=== PATIENT | female | born 1960 | race Caucasian/White ===

== ENCOUNTER 2016-06-16 08:27 | Inpatient (IN) | payer MEDICARE, MEDICAID ==
--- NOTE | 2016-06-10 20:46 | HP ---
PREOPERATIVE HISTORY AND PHYSICAL: DATE OF ADMISSION: 06/16/16 PROVIDER: Dr. Marco A Mortensen. CHIEF COMPLAINT: Left leg pain. HISTORY OF PRESENT ILLNESS: Mita is a 56-year-old female who has been followed by Dr. Mortensen for left distal tibia fracture. She underwent open reduction internal fixation with IM rodding. She has gone on to developing nonunion of the fracture as well as failure of hardware to the distal locking screw. This has caused migration of the nail into the tibial plafond. She initially was reporting that she was pain free; however, she states that she has had more discomfort and swelling throughout the ankle and lower leg. Her current pain medication regimen is not helping the pain and she is finding it difficult to ambulate and sleep. She is now interested in surgical intervention. PAST MEDICAL HISTORY: GERD, hypertension, vertigo, depression, asthma, hypercholesterolemia, and vitamin D deficiency. PAST SURGICAL HISTORY: Left tibia ORIF; right frontal craniotomy for removal of a colloid with ventriculostomy, right MECHANIC CHIEF shunt placement, shunt removal; section with tubal ligation; hysterectomy; laparoscopic cholecystectomy ; left breast biopsy. She reports no complications with anesthesia with any of these procedures. CURRENT MEDICATIONS: 1. Gabapentin 300 mg 1 tab p.o. b.i.d. 2. Nexium 20 mg 1 tab p.o. b.i.d. 3. Propranolol 80 mg 1 tab p.o. t.i.d. 4. Meclizine 40 mg 2 tabs p.o. q.a.m., 1 tab p.o. q.h.s. 5. Fluoxetine HCl 40 mg 1 p.o. q. day. 6. ProAir HFA 2 puffs inhaled p.o. q.4 hours p.r.n. 7. Clobetasol propionate 0.05% topically q. day p.r.n. 8. Lamotrigine 100 mg 1 tab p.o. t.i.d. 9. Hydrocodone/acetaminophen 10/300 mg 1 tab p.o. q.a.m. and 1 tab p.o. t.i.d. p.r.n. 10. Simvastatin 5 mg 1 tab p.o. q. day. 11. Celecoxib 100 mg 1 tab p.o. b.i.d. 12. Xarelto 20 mg 1 p.o. q. day. The patient is currently withholding the Xarelto as of 06/09/16. 13. Propafenone HCl ER 325 mg 1 tab p.o. b.i.d. 14. Vitamin B12 injections 1000 mcg weekly. 15. Vitamin D 2000 units p.o. q. day. ALLERGIES: MORPHINE. SOCIAL HISTORY: The patient lives with her partner. She is on social security disability after her craniotomy. She quit smoking in April of 2014. She did smoke 1 pack per day for greater than 30 years. She is also a former alcoholic, quit 1995. She rarely exercises. REVIEW OF SYSTEMS: Constitutional: Negative for recent hospitalization, fevers , chills, night sweats, or weight loss. Head: Negative for headaches, lightheadedness, or balance problems. Cardiovascular: Negative for chest or arm pain with exertion, history of heart attack, heart murmur, or heart palpitations. Positive for high blood pressure. Negative for embolism or deep vein thrombosis. Respiratory: Positive for shortness of breath with exertion. Negative for chronic cough. Positive for asthma. Negative for COPD. Gastrointestinal: Negative for heartburn, nausea, vomiting, diarrhea. Positive for GERD. Genitourinary: Negative for nighttime urination, frequency of urination, urinary tract infections, or kidney problems. Musculoskeletal: Negative for chronic back pain. Positive for tibia fracture. Skin: Negative for rashes, lesions, lumps, or sores. Neurologic: Positive for history of seizure disorder. Negative for stroke. Positive for depression and anxiety. Endocrine: Negative for diabetes or thyroid problems. Hematology: Positive for easy bleeding due to the Xarelto. Negative for anemia. PHYSICAL EXAMINATION GENERAL: She is a well-developed, well-nourished female, in no acute distress at rest. She is alert and oriented x3 with appropriate mood and affect. VITAL SIGNS: The patient is 5 feet 5 inches, 246 pounds, blood pressure 140/88 , pulse 60. HEENT: Normocephalic, atraumatic. Hearing and vision are grossly intact. NECK: Her trachea is midline. RESPIRATORY: Lungs clear to auscultation bilaterally. No wheezes, rales, or rhonchi. CARDIOVASCULAR: Regular rate and rhythm. No murmurs, rubs, or gallops. Normal S1, S2. ABDOMEN: Soft, nondistended, nontender. Normal bowel sounds. EXTREMITIES: Exam of the left lower extremity, the incision over the anterior and medial aspect of the lower leg are well healed. There is moderate edema throughout the lower leg and ankle. There is no ecchymosis or gross deformities. She does have tenderness to palpation diffusely throughout the ankle joint. Her sensation to light touch is somewhat decreased secondary to peripheral neuropathy. She has a 2+ dorsalis pedis pulse. DIAGNOSTIC STUDIES: Imaging: CT scan of the left lower extremity was reviewed from [facility] and shows a nonunion of a spiral tibial plafond fracture with a fractured distal locking screw and migration of the tibial nail through the tibiotalar joint. IMPRESSION: Left tibia nonunion with failed hardware. PLAN: The patient is to undergo left tibial hardware removal and subsequent open reduction internal fixation of the left tibia with iliac bone graft on . The risks, benefits, and postoperative course were discussed with the patient and her partner at length and they would like to proceed. She was given a small prescription of hydrocodone to increase her dose temporarily until after surgery. She is understanding that this will be changed to oxycodone after surgery. All of her questions were answered to her full satisfaction. We will follow up with the patient in the postoperative phase. KENYA PARKER [id number]/[facility] #: [id number] MADHAV
[~2016-06-16 08:27] MED LIST: Buffered Lidocaine 1% SYR 3ML* 3 ML/SYR SYRINGE INTRADERM ONE; Famotidine IV* 10 MG/ML 2 ML (20 mg) IV ONE; PROCHLORPERAZINE INJ 5 MG/ML 2 ML VIAL IV PRN
[2016-06-16] MEDS ORDERED: Famotidine IV* 10 MG/ML 2 ML (20 mg) ONE (08:51)
[2016-06-16] MEDS ORDERED: ceFAZolin 2 GM PREMIX (*) 2 GM/50 ML BAG IVPB ONE (08:51)
[2016-06-16] MEDS ORDERED: Buffered Lidocaine 1% SYR 3ML* 3 ML/SYR SYRINGE ONE (08:51)
[2016-06-16] MEDS ORDERED: Midazolam* 1 MG/ML 5 ML VIAL (5 MG) ONE (10:31)
[2016-06-16] MEDS ORDERED: fentaNYL* 50 MCG/ML 2 ML VIAL (100 MCG VIAL) ONE ×2 (10:31→15:33)
[2016-06-16] MEDS ORDERED: KETAMINE HCL* 50 MG/ML 10 ML VIAL ONE (10:31)
[2016-06-16] MEDS ORDERED: Propofol* 10 MG/ML 20 ML BTL IV PUSH ONE (11:49)
[2016-06-16] MEDS ORDERED: HYDROmorphone INJ* 1 MG/ML CARPUJECT SYRINGE ONE ×3 (11:49→14:27)
[2016-06-16] MEDS ORDERED: Dexamethasone IV* 4 MG/ML 1 ML (4 MG) ONE (11:49)
[2016-06-16] MEDS ORDERED: Ondansetron INJ* 2 MG/ML VIAL ONE (11:49)
[2016-06-16] MEDS ORDERED: Bupivacaine 0.5% SDV PF* 30 ML VIAL ONE (13:04)
[2016-06-16] MEDS ORDERED: Labetalol IV* 5 MG/ML 20 ML VIAL ONE (13:41)
[2016-06-16] MEDS ORDERED: Lidocaine 2% MPF* 2 ML VIAL ONE (13:52)
[2016-06-16] MEDS ORDERED: hydrALAZINE IV* 20 MG/ML VIAL ONE (14:05)
[2016-06-16] MEDS ORDERED: Polyethylene Glycol 3350* 17 GM PACKET PO PRN (14:13)
[2016-06-16] MEDS ORDERED: traZODone TAB* 50 MG TAB PO PRN (14:13)
[2016-06-16] MEDS ORDERED: diPHENhydraMINE IV* 50 MG/ML 1 ml VIAL (BENADRYL) IV PRN (14:13)
[2016-06-16] MEDS ORDERED: Ondansetron INJ* 2 MG/ML VIAL IV PRN (14:13)
[2016-06-16] MEDS ORDERED: Magnesium Hydroxide LIQ* 30 ML UDC PO PRN (14:13)
[2016-06-16] MEDS ORDERED: oxyCODONE TAB* 5 MG TAB PO PRN (14:19)
[2016-06-16] MEDS ORDERED: HYDROmorphone INJ* 1 MG/ML CARPUJECT SYRINGE IV SLOW PU PRN (14:20)
[2016-06-16] MEDS: HYDROmorphone INJ* 1 MG/ML CARPUJECT SYRINGE IV PRN ×5 (14:29→15:10)
[2016-06-16] MEDS ORDERED: oxyCODONE/Acetamin 5/325 MG* TAB ONE (15:05)
[2016-06-16] MEDS: oxyCODONE/Acetamin 5/325 MG* TAB PO PRN ×2 (15:08→15:09)
[2016-06-16] MEDS: fentaNYL* 50 MCG/ML 2 ML VIAL (100 MCG VIAL) IV PRN ×4 (15:34→15:52)
[2016-06-16] MEDS ORDERED: Omeprazole CAP* 20 MG ONE (18:21)
[2016-06-16] MEDS: oxyCODONE TAB* 5 MG TAB PO PRN ×2 (18:23→22:54)
[2016-06-16] MEDS: ceFAZolin 1 GM in Dextrose (*) 1 GM/50 ML BAG IVPB SCH (19:44)
[2016-06-16] MEDS ORDERED: Omeprazole CAP* 20 MG PO SCH (21:00)
[2016-06-16] MEDS: CMCS Simvastatin TAB(NF) 10 MG TAB PO SCH (22:03)
[2016-06-16] MEDS: PROPAFENONE 325 MG PO SCH (22:04)
[2016-06-16] MEDS: Meclizine TAB* 12.5 MG PO SCH (22:05)
[2016-06-16] MEDS: lamoTRIgine TAB(*) 100 MG PO SCH (22:05)
[2016-06-16] MEDS: Gabapentin CAP(*) 300 MG PO SCH (22:06)
[2016-06-16] MEDS: Docusate CAP* 100 MG PO SCH (22:06)
[2016-06-16] MEDS: Rivaroxaban TAB(*) 20 MG TAB PO SCH (22:06)
[2016-06-16] MEDS: celeCOXIB CAP* 100 MG PO SCH (22:07)
[2016-06-16] MEDS: Propranolol TAB* 80 MG PO SCH (22:07)
[2016-06-16] MEDS: Zolpidem TAB* 10 MG PO PRN (22:07)
[2016-06-17] MEDS: oxyCODONE TAB* 5 MG TAB PO PRN ×4 (03:14→16:22)
[2016-06-17] MEDS: ceFAZolin 1 GM in Dextrose (*) 1 GM/50 ML BAG IVPB SCH ×2 (03:15→12:11)
[2016-06-17 07:10] LABS: Hematocrit 33 % (35-47); Hemoglobin 10.9 g/dl (12.0-16.0)
[2016-06-17 07:30] LABS: BUN/Creatinine Ratio 18.5 (8-20); Calcium 9.1 mg/dL (8.6-10.3); EGFR African American 93.7 (>60); EGFR Non-African American 72.9 (>60); Potassium 3.7 mmol/L (3.5-5.0)
[2016-06-17] MEDS: Omeprazole CAP* 20 MG PO SCH ×2 (07:32→16:23)
[2016-06-17] MEDS: celeCOXIB CAP* 100 MG PO SCH ×2 (08:45→20:11)
[2016-06-17] MEDS: Docusate CAP* 100 MG PO SCH ×2 (08:46→20:13)
[2016-06-17] MEDS: lamoTRIgine TAB(*) 100 MG PO SCH ×3 (08:46→20:13)
[2016-06-17] MEDS: Propranolol TAB* 80 MG PO SCH ×3 (08:47→20:13)
[2016-06-17] MEDS: Meclizine TAB* 12.5 MG PO SCH ×3 (08:47→20:13)
[2016-06-17] MEDS: PROPAFENONE 325 MG PO SCH ×2 (08:47→20:13)
[2016-06-17] MEDS ORDERED: FLUoxetine CAP* 20 MG PO SCH (09:00)
[2016-06-17] MEDS ORDERED: Cyanocobalamin TAB* 500 MCG PO SCH (09:00)
[2016-06-17] MEDS ORDERED: Cholecalciferol TAB* 1000 UNITS PO SCH (09:00)
[2016-06-17] MEDS ORDERED: Triamcinolone 0.025% OINT * 15 GM TUBE TOPICAL SCH (09:00)
--- NOTE | 2016-06-17 11:30 | OP ---
OPERATIVE REPORT: DATE OF OPERATION: 06/16/16 DATE OF : 58 ATTENDING SURGEON: Marco A Mortensen MD GARMENT STEAMER: Eun Irvin PA-C PRE-OP DIAGNOSIS: Left distal tibia malunion with failed hardware intramedullary nail. POST-OP DIAGNOSIS: Left distal tibia malunion with failed hardware intramedullary nail. OPERATIVE PROCEDURE: Removal of nail left tibia with open plating distal tibial nonunion with intra medullary bone grafting. DESCRIPTION OF PROCEDURE: The patient was taken to the operating room, where we opened up over the 2 distal screws at the distal tibia and 1 proximal screw. The heads of the screws were located and removed, but all 3 of the screws were broken. We split the patellar tendon proximally to allow the r emoval device to attach to the proximal nail. We drove this forcefully proximally, but we were unab le to extract it because of the retained broken screw threads distally. These were basically at the nonunion side at this point, so we opened up longitudinally to prepare for the plating. At the fra cture site, we were able to identify both broken screw shafts removing them directly, which then fac ilitated removing the nail proximally. Before we closed the proximal wound, we harvested cancellous graft from the proximal tibia with a large curette and irrigated thoroughly and closing the patella r tendon with 0 Vicryl sutures, subcutaneous tissue with 2-0 Vicryl, and then dallas for the proxim al wound. The tibial nonunion site was then freed up with the E[place]a elevator. We used a 5-mm power bur to fres hen the bone sides. We would need to shorten this to prevent varus, so an osteotomy is performed of the fibula through the same approach proximal to the plate. The proximal autograft and the tibia was mixed with some allograft chips and DBX bone putty placed a long the tibial nonunion and then plated this using a medial locking plate of the Synthes set, combi [place] of locking and nonlocking screws were used. X-rays intraoperatively showed a dissected posit ion at the plate. We then irrigated thoroughly closing with 0 Vicryl sutures and dallas and a comp ression dressing and plaster splint applied. [id number]/[facility] #: [id number]
[2016-06-17] MEDS: Gabapentin CAP(*) 300 MG PO SCH (20:12)
[2016-06-17] MEDS: CMCS Simvastatin TAB(NF) 10 MG TAB PO SCH (20:12)
[2016-06-17] MEDS: Rivaroxaban TAB(*) 20 MG TAB PO SCH (20:13)
[2016-06-17] MEDS: Albuterol HFA INHALER* 8 gm MDI INH PRN (20:13)
[2016-06-17] MEDS: Zolpidem TAB* 10 MG PO PRN (22:35)
[2016-06-18] MEDS: Omeprazole CAP* 20 MG PO SCH (05:50)
[2016-06-18] MEDS: Albuterol HFA INHALER* 8 gm MDI INH PRN (05:50)
[2016-06-18] MEDS: oxyCODONE TAB* 5 MG TAB PO PRN (06:09)
[2016-06-18 08:11] VITALS: BP 116/72
--- NOTE | 2016-06-18 08:12 | PN ---
Progress Note - Progress Note SOAP: Subjective: POD #2 Left tibia fx ORIF revision with hardware removal. Pt states that she is doing well. Pain controlled with medication. Denies CP/SOB. States that she is doing ok with NWB. Objective: Vital Signs: Temp Pulse Resp BP Pulse Ox 98.6 F 78 20 119/66 93 06/18/16 04:11 06/18/16 04:11 06/18/16 06:09 06/18/16 04:11 06/18/16 04:11 Gen: A & Ox3, NAD at rest sitting in bed LLE: Splint C/D/I. +f/e at MTPs. N/V intact Assessment: POD #2 Left tibia fx ORIF revision with hardware removal Plan: D/C home today Aspirin 325mg po q day for DVT ppx Pt states she has home health coming in for assistance and PT F/u with Dr. Mortensen 10-14 days post op
--- NOTE | 2016-07-15 01:08 | DS ---
DISCHARGE SUMMARY: DATE OF ADMISSION: 06/16/16 DATE OF DISCHARGE: 06/18/16 HISTORY: Mita was admitted on 06/16/16 with a diagnosis of nonunion and distal migration of left tibial nail. She is densely neuropathic. She underwent removal of the tibial nail and tibial plating with intramedullary bone grafting. The procedure was performed on 06/16/16 and tolerated well. Postoperatively, the patient was admitted for observation because of inability to ambulate, nonweightbearing and necessity for IV pain medication. The day after surgery, she was noted to be afebrile and slowly mobilizing with therapy and 2 days postoperatively, she was up successfully with physical therapy and tolerating oral pain medication. She was discharged on her routine medications with the addition of aspirin 325 a day. Her splint was intact and dry, and the patient was discharged with scheduled followup with Dr. Mortensen in 10 days' time. [id number]/[facility] #: [id number] MTDD
== END 2016-06-18 09:50 | disposition home or self-care (01) | DRG 494 ==
LOC: AA 08:27 → INTOOBSV 08:27 → AA 15:45 → SSU 17:16 → OBSVTOIN 06-17 15:45
PROVIDERS: ADMIT Orthopaedic Surgery; ATTEND Orthopaedic Surgery
PROC: 0QPH04Z Removal of Internal Fixation Device from Left Tibia, Open Approach (ICD-10-PCS; 2016-06-16)
PROC: 0QHH04Z Insertion of Internal Fixation Device into Left Tibia, Open Approach (ICD-10-PCS; principal; 2016-06-16 10:45)
DX: S82.872K Displaced pilon fracture of left tibia, subsequent encounter for closed fracture with nonunion (principal); I10 Essential (primary) hypertension; W19.XXXD Unspecified fall, subsequent encounter; K21.9 Gastro-esophageal reflux disease without esophagitis; F32.9 Major depressive disorder, single episode, unspecified; J45.909 Unspecified asthma, uncomplicated; E78.00 Pure hypercholesterolemia, unspecified; E55.9 Vitamin D deficiency, unspecified; F10.21 Alcohol dependence, in remission; Z79.01 Long term (current) use of anticoagulants; Z79.899 Other long term (current) drug therapy; Z88.6 Allergy status to analgesic agent; Z87.891 Personal history of nicotine dependence
CPT/HCPCS: 36415; 80048; 85014; 85018; 87070; 87205; 88300; A9270-GY; C1713; C1776; C9359; G0378; G8987-GO-CI; G8988-GO-CI; G8989-GO-CI; J0360; J0690; J1100; J1170; J2250; J2405; J2704; J3010

== ENCOUNTER 2016-11-27 11:49 | Inpatient (IN) | payer MEDICARE, MEDICAID ==
[2016-11-27 13:26] LABS: Hematocrit 40 % (35-47); Hemoglobin 13.2 g/dl (12.0-16.0); Mean Corpuscular HGB Conc 33 g/dl (31-36); Mean Corpuscular Hemoglobin 32 pg (27-31); Mean Corpuscular Volume 96 fL (80-97); Mean Platelet Volume 8 um3 (7.4-10.4); Red Blood Count 4.17 10^6/ul (4.0-5.4); Red Cell Distribution Width 14 % (10.5-15); White Blood Count 9.9 10^3/ul (3.5-10.8)
[2016-11-27 13:38] LABS: ALT 28 U/L (7-52); AST 48 U/L (13-39); Acetaminophen < 15 mcg/mL; Albumin 4.5 g/dL (3.2-5.2); Alcohol < 10 mg/dL (<10); Alkaline Phosphatase 109 U/L (34-104); Anion Gap 12 mmol/L (2-11); BUN/Creatinine Ratio 20.2 (8-20); Blood Urea Nitrogen 22 mg/dL (6-24); CO2 Carbon Dioxide 22 mmol/L (22-32); Calcium 9.6 mg/dL (8.6-10.3); Chloride 104 mmol/L (101-111); EGFR African American 66.5 (>60); EGFR Non-African American 51.7 (>60); Globulin 3.5 g/dL (2-4); Glucose 169 mg/dL (70-100); Potassium 3.8 mmol/L (3.5-5.0); Salicylate < 2.50 mg/dL (<30); Sodium 138 mmol/L (133-145)
[2016-11-27] MEDS ORDERED: NS 0.9% 1000 ML* 1,000 ML IV ONE (13:45)
[2016-11-27] MEDS ORDERED: Albuterol/Ipratropium NEB.SOL* Albuterol 2.5 MG/Ipratropium 0.5 MG 3 ML INH ONE (13:52)
--- NOTE | 2016-11-27 14:27 | RAD ---
HISTORY: Fall COMPARISONS: September 30, 2015 TECHNIQUE: Multiple contiguous axial CT scans were obtained of the head without intravenous contrast. FINDINGS: HEMORRHAGE/INFARCT: There is no hemorrhage or acute infarct. MASSES/SHIFT: There is no mass or shift. EXTRA-AXIAL SPACES: There are no extra-axial fluid collections. SULCI AND VENTRICLES: The sulci and ventricles are normal in size and position for the patient's stated age. CEREBRUM: There is stable right frontal encephalomalacia BRAINSTEM: There are no focal parenchymal abnormalities. CEREBELLUM: There are no focal parenchymal abnormalities. VESSELS: The vessels are grossly normal. PARANASAL SINUSES: The paranasal sinuses are clear. ORBITS: The orbits are unremarkable. BONES AND SOFT TISSUE: There is postsurgical change to the right frontal skull OTHER: None IMPRESSION: NO ACUTE INTRACRANIAL PATHOLOGY. Stable right frontal encephalomalacia
--- NOTE | 2016-11-27 14:31 | RAD ---
INDICATION: Fall. Abrasions. COMPARISON: None TECHNIQUE: Noncontrast axial source images was performed from the skull base to the thoracic inlet. Coronal and and sagittal reformatted images were generated. FINDINGS: Vertebrae: There is no fracture or acute focal bony lesion. There is mild multilevel degenerative spurring most prominent about C5-C7. There is endplate sclerosis, anterior vertebral spurring, and mild uncinate process spurring with posterior spondylitic ridge formation. Alignment: The craniocervical junction appears normal. The cervical vertebrae are normally aligned. Central Canal: There are no significant CT abnormalities of the central canal or foramina. MR imaging is a more sensitive method to evaluate the canal and foramina. Intervertebral disc spaces: Minor narrowing C5-C6 and C6-C7. The remaining disc spaces are maintained. Brain: The visualized brain appears unremarkable. Soft tissues: The visualized soft tissue elements of the neck are unremarkable. The prevertebral soft tissues appear normal. The lung apices are clear. IMPRESSION: MODERATE MID TO LOWER CERVICAL OSTEOARTHRITIS. NO ACUTE FINDINGS.
[2016-11-27 14:33] LABS: Urine Bacteria Absent (Absent); Urine Bilirubin Negative (Negative); Urine Glucose Negative (Negative); Urine Nitrite Negative (Negative)
[2016-11-27] MEDS ORDERED: Ondansetron INJ* 2 MG/ML VIAL IV ONE (15:15)
[2016-11-27] MEDS ORDERED: cefTRIAXone(*) 1 GM in NS 0.9% 50 ML* 50 ML IVPB ONE (15:15)
[2016-11-27] MEDS ORDERED: Clindamycin 600 MG IVPREMIX(* 600 MG/50 ML SDV IV ONE (15:18)
--- NOTE | 2016-11-27 15:41 | RAD ---
Indication: Right elbow injury. 4 views of the right elbow demonstrates no fracture. No joint effusion is noted. IMPRESSION: No fracture of the right elbow is noted.
--- NOTE | 2016-11-27 15:41 | RAD ---
INDICATION: Right shoulder injury. TECHNIQUE: 4 views of the right shoulder were obtained portably. FINDINGS: The bones are in normal alignment. No fracture is seen. There is mild joint space narrowing and erosive change present in the acromioclavicular joint. IMPRESSION: 1. NO EVIDENCE FOR FRACTURE. 2. FINDINGS MOST CONSISTENT WITH INFLAMMATORY ARTHROPATHY IN THE ACROMIOCLAVICULAR JOINT.
--- NOTE | 2016-11-27 15:42 | RAD ---
HISTORY: Overdose COMPARISONS: August 09, 2015 VIEWS:1: Single frontal portable view of the chest at 2:55 PM FINDINGS: LINES AND TUBES: None. CARDIOMEDIASTINAL SILHOUETTE: The cardiomediastinal silhouette is normal for portable technique. PLEURA: The costophrenic angles are sharp. No pleural abnormalities are noted. LUNG PARENCHYMA: The lung volumes are low. The lungs are clear accounting for the phase of respiration. There is minimal linear opacification of the right lung base. ABDOMEN: The upper abdomen is clear. There is no subphrenic gas. BONES AND SOFT TISSUES: No bone or soft tissue abnormalities are noted. IMPRESSION: LOW LUNG VOLUMES WITH MINIMAL LINEAR ATELECTASIS OF THE RIGHT LUNG BASE.
--- NOTE | 2016-11-27 15:42 | RAD ---
Indication: Right forearm pain. 2 views of the right forearm demonstrates no fracture. No other bone or joint abnormality is identified. IMPRESSION: No fracture of the right forearm is noted.
[2016-11-27] MEDS ORDERED: Ondansetron INJ* 2 MG/ML VIAL IV PRN (15:51)
[2016-11-27] MEDS ORDERED: NS 0.9% 1000 ML* 1,000 ML IV SCH (16:00)
--- NOTE | 2016-11-27 17:57 | HP ---
History of Present Illness - History of Present Illness Reason for Visit: Attempted overdose History of Present Illness: This is a 56 yo obese white female with PMH of afib and depression that presents to ER after attempted overdose. She states she took 4 hydrocodone and 10 Xarelto in an attempt earlier this morning and was found on the floor unconscious and transported to the hospital by ambulance and given a dose of Narcan. Precipitating factors to suicide attempt include fracture of distal tibia last December that she reports "never healed fully", and recent breakup with her boyfriend of 27 years after he was "cheating with another woman". She denies previous hx of suicide attempt or psychiatric hospitalizations. She is not presently suicidal but is tearful and feeling depressed. She has no memory of falling onto the floor and being transferred to the hospital. She denies dizziness, SOB, or chest pains but feels drowsy and tired. She denies any pain from fall out of bed. 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 , ORIF for left distal tibial fracture in May of this year, Cholecystectomy , Hysterectomy - Past Family History Family History: CAD, DM, Other - Pancreatic Cancer - Past Social History Smoke: # pack years - 30, Quit Alcohol: None - Previous alcoholic, quit in 1995 Drugs: None Review of Systems - Review of Systems Other: General: Denies chills, sweats Head: Positive for ECKERT Denies dizziness Lungs: Denies cough, SOB, orthopnea Heart: Denies chest pain, palpitations Abdomen: Denies abdominal pain, n/v/d/c/ : Denies: dysuria, incontinence Extremities: Denies edema, pain Psychiatric: Positive for depression Denies: Suicidal ideation, homicidal ideation, hallucinations. - Medications/Allergies Allergies/Adverse Reactions: Allergies Allergy/AdvReac Type Severity Reaction Status Date / Time Adhesive Tape [Plastic Tape] Allergy Intermediate Rash And Verified 06/16/16 08: 58 Itching Morphine Allergy HALLUCINATION, Verified 06/16/16 08:58 VIOLENT Medications: Current Medications Home medications: Atorvastatin Calcium (Lipitor*) 10 mg PO 1700 SUZIE Fluoxetine HCl (Prozac Cap*) 40 mg PO DAILY SUZIE Gabapentin (Neurontin Cap(*)) 300 mg PO TID SUZIE Lamotrigine (Lamictal Tab(*)) 100 mg PO TID SUZIE Omeprazole (Prilosec Cap*) 20 mg PO 0600 SUZIE Propranolol HCl (Inderal Tab*) 80 mg PO TID SUZIE Nexium 20 mg 1 tab daily Meclizine 40 mg two tabs QAM, 1 tab QHS Proair 2 puffs as needed Colace 100 mg PO daily Propofenone HCL 325 mg PO daily Hydrocodone/Acetaminophen 10/300 Xarelto 20 mg PO daily Celecoxib 100 mg PO BID Exam - Exam Vital Signs: Vital Signs (72 hours) Vital Signs Temp Pulse Resp BP Pulse Ox 98.1 F 95 19 158/98 96 11/27/16 13:17 11/27/16 16:00 11/27/16 16:00 11/27/16 16:00 11/27/16 16:00 General: This is a 56 yo obese white woman that is lethargic laying on hospital bed with eyes closed but easily aroused. Skin: Notable ecchymosis on right shoulder, right elbow and forearm, and right hip. No open cuts or lesions. HEENT: Atraumatic, normocelphalic, PERRLA bilaterally. Lungs: Chest is symmetric with visible respiratory effort with coarseness and rhonchi throughout. Heart: Irregularly irregular, no JVD, with no murmurs, rubs of gallops. Abdomen: Hypoactive bowel sounds, abdomen is obese but soft and nontender. Extremities: left ankle with increased warmth around area of scar from previous surgery with mild edema of foot and ankle. PP 2+ bilaterally. Neuro: Lethargic without knowing place, date, day or time. Labs Results: WBC 9.9 10^3/ul (3.5-10.8) 11/27/16 13:06 RBC 4.17 10^6/ul (4.0-5.4) 11/27/16 13:06 Hgb 13.2 g/dl (12.0-16.0) 11/27/16 13:06 Hct 40 % (35-47) 11/27/16 13:06 MCV 96 fL (80-97) 11/27/16 13:06 MCH 32 pg (27-31) H 11/27/16 13:06 MCHC 33 g/dl (31-36) 11/27/16 13:06 RDW 14 % (10.5-15) 11/27/16 13:06 Plt Count 300 10^3/ul (150-450) 11/27/16 13:06 MPV 8 um3 (7.4-10.4) 11/27/16 13:06 Neut % (Auto) 87.7 % (38-83) H 11/27/16 13:06 Lymph % (Auto) 6.8 % (25-47) L 11/27/16 13:06 Jones % (Auto) 5.0 % (1-9) 11/27/16 13:06 Eos % (Auto) 0 % (0-6) 11/27/16 13:06 Baso % (Auto) 0.5 % (0-2) 11/27/16 13:06 Absolute Neuts (auto) 8.7 10^3/ul (1.5-7.7) H 11/27/16 13:06 Absolute Lymphs (auto) 0.7 10^3/ul (1.0-4.8) L 11/27/16 13:06 Absolute Monos (auto) 0.5 10^3/ul (0-0.8) 11/27/16 13:06 Absolute Eos (auto) 0 10^3/ul (0-0.6) 11/27/16 13:06 Absolute Basos (auto) 0 10^3/ul (0-0.2) 11/27/16 13:06 Absolute Nucleated RBC 0 10^3/ul 11/27/16 13:06 Nucleated RBC % 0 11/27/16 13:06 INR (Anticoag Therapy) 2.82 (0.89-1.11) H 11/27/16 13:06 APTT 41.2 seconds (26.0-36.3) H 11/27/16 13:06 Sodium 138 mmol/L (133-145) 11/27/16 13:06 Potassium 3.8 mmol/L (3.5-5.0) 11/27/16 13:06 Chloride 104 mmol/L (101-111) 11/27/16 13:06 Carbon Dioxide 22 mmol/L (22-32) 11/27/16 13:06 Anion Gap 12 mmol/L (2-11) H 11/27/16 13:06 BUN 22 mg/dL (6-24) 11/27/16 13:06 Creatinine 1.09 mg/dL (0.51-0.95) H 11/27/16 13:06 Est GFR ( Amer) 66.5 (>60) 11/27/16 13:06 Est GFR (Non-Af Amer) 51.7 (>60) 11/27/16 13:06 BUN/Creatinine Ratio 20.2 (8-20) H 11/27/16 13:06 Glucose 169 mg/dL (70-100) H 11/27/16 13:06 Calcium 9.6 mg/dL (8.6-10.3) 11/27/16 13:06 Total Bilirubin 0.80 mg/dL (0.2-1.0) 11/27/16 13:06 AST 48 U/L (13-39) H 11/27/16 13:06 ALT 28 U/L (7-52) 11/27/16 13:06 Alkaline Phosphatase 109 U/L (34-104) H 11/27/16 13:06 Total Creatine Kinase 1370 U/L (10-223) H 11/27/16 13:06 Troponin I 0.10 ng/mL (<0.04) H* 11/27/16 13:06 Total Protein 8.0 g/dL (6.4-8.9) 11/27/16 13:06 Albumin 4.5 g/dL (3.2-5.2) 11/27/16 13:06 Globulin 3.5 g/dL (2-4) 11/27/16 13:06 Albumin/Globulin Ratio 1.3 (1-3) 11/27/16 13:06 TSH 2.10 mcIU/mL (0.34-5.60) 11/27/16 13:06 Urine Color Paty 11/27/16 14:11 Urine Appearance Cloudy 11/27/16 14:11 Urine pH 5.0 (5-9) 11/27/16 14:11 Ur Specific [place] 1.023 (1.010-1.030) 11/27/16 14:11 Urine Protein 1+(30 mg/dl) (Negative) H 11/27/16 14:11 Urine Ketones Negative (Negative) 11/27/16 14:11 Urine Blood 2+ (Negative) H 11/27/16 14:11 Urine Nitrate Negative (Negative) 11/27/16 14:11 Urine Bilirubin Negative (Negative) 11/27/16 14:11 Urine Urobilinogen Positive (Negative) H 11/27/16 14:11 Ur Leukocyte Esterase 3+ (Negative) H 11/27/16 14:11 Urine WBC (Auto) 3+(>20/hpf) (Absent) H 11/27/16 14:11 Urine RBC (Auto) 3+(>10/hpf) (Absent) H 11/27/16 14:11 Ur Squamous Epith Cells Present (Absent) H 11/27/16 14:11 Urine Bacteria Absent (Absent) 11/27/16 14:11 Hyaline Casts Present (Absent) H 11/27/16 14:11 Urine Glucose Negative (Negative) 11/27/16 14:11 Salicylates < 2.50 mg/dL (<30) 11/27/16 13:06 Acetaminophen < 15 mcg/mL 11/27/16 13:06 Serum Alcohol < 10 mg/dL (<10) 11/27/16 13:06 EKG: T wave inversions in V2-V4 with prolonged QT and premature atrial beats with left axis deviation and good R wave progression. CT brain: No acute intracranial pathology. Cervical spine CT: No acute findings, evidence of OA. Elbow X-ray: Negative for fracture. Shoulder X-ray: Negative for fracture but some inflammatory arthropathy in AC joint. Forearm X-ray: negative for fracture. CXR: Minimal linear atelectasis of right lung base. Assessment/Plan - Assessment/Plan Plan: Assessment/Plan: This is a 56 yo obese white female the presents with attempted suicide after overdose on hydrocodone and Xarelto with depression, NSTEMI type II, QT prolongation, and atrial fibrillation. 1) Medication overdose secondary to depression: Consultation with psychiatry. Recheck INR, PTT from ingestion of Xarelto. Patient is not actively suicidal but will be placed on 1:1. Stop Prozac due to risk of QT prolongation. Check CK, as it is unknown how long patient was on the ground before being found. 2) NSTEMI, type II: EKG results show TWI in V2-V4 with positive Trop of 0.10. Type 2 likely due to supply/demand mismatch with ingestion of attempted overdose medications so hold NSTEMI management as likely not due to ischemia and patients increased risk of bleeding. Trend Troponins. Place on telemetry and repeat EKG tomorrow. 3) QT Prolongation: Stop Zofran, Propafenone, and Prozac as side effect is QT prolongation. 4) Atrial fibrillation: Patient scores a 2 on chadsvasc scoring which puts her at 3% risk for stroke. Need to consider outpatient options for reversible anticoagulation with possible switch to Coumadin. Hold Xarelto and propafenone. 5) HTN: Cont Propranolol. 6) GERD: Cont Nexium 7) Hyperlipidemia: Cont Simvastatin 8) Asthma: Cont Proair 9) Vertigo: Cont Meclizine 10) DVT Prophylaxis: Hold Heparin 11) Code status: DNR Status/disposition: Admitted for observation.
[2016-11-27 18:16] LABS: Creatine Kinase 1370 U/L (10-223)
[2016-11-27] MEDS ORDERED: PROPAFENONE 325 MG PO SCH (21:00)
[2016-11-27] MEDS: Gabapentin CAP(*) 300 MG PO SCH (22:19)
[2016-11-27] MEDS: lamoTRIgine TAB(*) 100 MG PO SCH (22:21)
[2016-11-27] MEDS: Propranolol TAB* 80 MG PO SCH (22:22)
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
[2016-11-28] MEDS ORDERED: Acetaminophen TAB* 325 MG PO PRN (00:55)
[2016-11-28] MEDS ORDERED: Acetaminophen TAB* 325 MG ONE (01:17)
[2016-11-28] MEDS ORDERED: Nicotine Inhaler* 10 MG AMP INH PRN (05:08)
[2016-11-28] MEDS ORDERED: Mouth Piece, Nicotine* 1 EACH CARTRIDGE INH ONE (05:20)
[2016-11-28] MEDS ORDERED: Mouth Piece, Nicotine* 1 EACH CARTRIDGE ONE (05:22)
[2016-11-28] MEDS: Omeprazole CAP* 20 MG PO SCH (05:24)
[2016-11-28 06:08] LABS: Hematocrit 36 % (35-47); Hemoglobin 11.5 g/dl (12.0-16.0); Mean Corpuscular HGB Conc 32 g/dl (31-36); Mean Corpuscular Hemoglobin 32 pg (27-31); Mean Corpuscular Volume 97 fL (80-97); Mean Platelet Volume 8 um3 (7.4-10.4); Red Blood Count 3.66 10^6/ul (4.0-5.4); Red Cell Distribution Width 14 % (10.5-15); White Blood Count 8.9 10^3/ul (3.5-10.8)
[2016-11-28 06:20] LABS: BUN/Creatinine Ratio 25.6 (8-20); EGFR African American 92.4 (>60); EGFR Non-African American 71.9 (>60); Potassium 4.1 mmol/L (3.5-5.0)
[2016-11-28] MEDS: Propranolol TAB* 80 MG PO SCH ×3 (07:46→20:35)
[2016-11-28] MEDS: Gabapentin CAP(*) 300 MG PO SCH ×3 (07:46→20:34)
[2016-11-28] MEDS: lamoTRIgine TAB(*) 100 MG PO SCH ×3 (07:46→20:35)
[2016-11-28] MEDS ORDERED: FLUoxetine CAP* 20 MG PO SCH (09:00)
--- NOTE | 2016-11-28 16:44 | PN ---
Subjective Date of Service: 11/28/16 Interval History: Events review: Fall today when trying to get out of bed. She does not usually walk but tried to stand using a walker while aide was retrieving a wheelchair. Seen after fall and pt denies ECKERT, N/V, LH vision changes Does not endorse regret after suicide attempt Boyfriend in room and voices support for patient. Objective Active Medications: Acetaminophen (Tylenol Tab*) 650 mg PO Q6H PRN PRN Reason: FEVER/PAIN Last Admin: 11/28/16 01:18 Dose: 650 mg Atorvastatin Calcium (Lipitor*) 10 mg PO 1700 [facility] Gabapentin (Neurontin Cap(*)) 300 mg PO TID [facility] Last Admin: 11/28/16 14:56 Dose: 300 mg Lamotrigine (Lamictal Tab(*)) 100 mg PO TID [facility] Last Admin: 11/28/16 14:56 Dose: 100 mg Nicotine (Nicotine Inhaler*) 10 mg INH Q2H PRN PRN Reason: CRAVING Last Admin: 11/28/16 05:26 Dose: 10 mg Omeprazole (Prilosec Cap*) 20 mg PO 0600 [facility] Last Admin: 11/28/16 05:24 Dose: 20 mg Propranolol HCl (Inderal Tab*) 80 mg PO TID [facility] Last Admin: 11/28/16 14:56 Dose: 80 mg Oxygen Devices in Use Now: None - 95% RA Appearance: obese, NAD Eyes: No Scleral Icterus, PERRLA Ears/Nose/Mouth/Throat: Clear Oropharnyx, Mucous Membranes Moist Neck: NL Appearance and Movements; NL JVP, Trachea Midline Respiratory: Symmetrical Chest Expansion and Respiratory Effort, Clear to Auscultation Cardiovascular: RRR Abdominal: NL Sounds; No Tenderness; No Distention, No Hepatosplenomegaly Lymphatic: No Cervical Adenopathy Extremities: - - 1+ le edema Neurological: Alert and Oriented x 3 Result Diagrams: 11/28/16 05:29 11/28/16 05:29 Additional Lab and Data: Lab Results 11/27/16 11/27/16 Range/Units 13:06 13:06 WBC 9.9 (3.5-10.8) 10^3/ul RBC 4.17 (4.0-5.4) 10^6/ul Hgb 13.2 (12.0-16.0) g/dl Hct 40 (35-47) % MCV 96 (80-97) fL MCH 32 H (27-31) pg MCHC 33 (31-36) g/dl RDW 14 (10.5-15) % Plt Count 300 (150-450) 10^3/ul MPV 8 (7.4-10.4) um3 Neut % (Auto) 87.7 H (38-83) % Lymph % (Auto) 6.8 L (25-47) % [place] % (Auto) 5.0 (1-9) % Eos % (Auto) 0 (0-6) % Baso % (Auto) 0.5 (0-2) % Absolute Neuts (auto) 8.7 H (1.5-7.7) 10^3/ul Absolute Lymphs (auto) 0.7 L (1.0-4.8) 10^3/ul Absolute Monos (auto) 0.5 (0-0.8) 10^3/ul Absolute Eos (auto) 0 (0-0.6) 10^3/ul Absolute Basos (auto) 0 (0-0.2) 10^3/ul Absolute Nucleated RBC 0 10^3/ul Nucleated RBC % 0 Sodium 138 (133-145) mmol/L Potassium 3.8 (3.5-5.0) mmol/L Chloride 104 (101-111) mmol/L Carbon Dioxide 22 (22-32) mmol/L Anion Gap 12 H (2-11) mmol/L BUN 22 (6-24) mg/dL Creatinine 1.09 H (0.51-0.95) mg/dL Est GFR ( Amer) 66.5 (>60) Est GFR (Non-Af Amer) 51.7 (>60) BUN/Creatinine Ratio 20.2 H (8-20) Glucose 169 H (70-100) mg/dL Calcium 9.6 (8.6-10.3) mg/dL Total Bilirubin 0.80 (0.2-1.0) mg/dL AST 48 H (13-39) U/L ALT 28 (7-52) U/L Alkaline Phosphatase 109 H (34-104) U/L Total Protein 8.0 (6.4-8.9) g/dL Albumin 4.5 (3.2-5.2) g/dL Globulin 3.5 (2-4) g/dL Albumin/Globulin Ratio 1.3 (1-3) TSH 2.10 (0.34-5.60) mcIU/mL Salicylates < 2.50 (<30) mg/dL Acetaminophen < 15 mcg/mL Serum Alcohol < 10 (<10) mg/dL Assess/Plan/Problems-Billing Assessment: 56 yo F admitted after intentional overdose - Patient Problems (1) Overdose Comment: maintain 1:1 monitoring monitor qtc holding narcotics, xarelto and other wtc prolonging drugs (2) Elevated troponin Comment: demand mediated (3) QT prolongation Comment: has been prolonged on past ekgs holding propafenone, prozac check in AM (4) Hypertension Comment: propanolol (5) History of seizures Current Visit: No Status: Chronic Priority: High Code(s): Z87.898 - PERSONAL HISTORY OF OTHER SPECIFIED CONDITIONS SNOMED Code(s): 967202040 Comment: Continue Lamictal (6) Paroxysmal atrial fibrillation Current Visit: No Status: Chronic Code(s): I48.0 - PAROXYSMAL ATRIAL FIBRILLATION SNOMED Code(s): 069148228 Comment: Rate controlled. SR in the 70s and 80s. Continue propafenone, propranalol, and Xarelto. (7) DVT prophylaxis Comment: od on xarelto. hold AC
[2016-11-28] MEDS ORDERED: Atorvastatin* 10 MG TAB PO SCH (17:00)
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
[2016-11-29 05:43] LABS: Hematocrit 34 % (35-47); Hemoglobin 11.3 g/dl (12.0-16.0); Mean Corpuscular HGB Conc 33 g/dl (31-36); Mean Corpuscular Hemoglobin 32 pg (27-31); Mean Corpuscular Volume 96 fL (80-97); Mean Platelet Volume 8 um3 (7.4-10.4); Red Blood Count 3.56 10^6/ul (4.0-5.4); Red Cell Distribution Width 14 % (10.5-15); White Blood Count 7.4 10^3/ul (3.5-10.8)
[2016-11-29] MEDS: Omeprazole CAP* 20 MG PO SCH (05:51)
[2016-11-29] MEDS: Propranolol TAB* 80 MG PO SCH (07:49)
[2016-11-29] MEDS: lamoTRIgine TAB(*) 100 MG PO SCH (07:49)
[2016-11-29] MEDS: Gabapentin CAP(*) 300 MG PO SCH (07:49)
[2016-11-29 09:04] VITALS: BP 129/69
--- NOTE | 2016-11-30 13:01 | DS ---
CC: Dr. Redmond; Dr. Camacho * DISCHARGE SUMMARY: DATE OF ADMISSION: 11/27/16 DATE OF DISCHARGE: 11/29/16 PRIMARY DIAGNOSIS: Medication overdose in suicide attempt. SECONDARY DIAGNOSES: Include: 1. Prolonged QT interval. 2. Atrial fibrillation. 3. Depression. 4. Elevated troponin. 5. Hypertension. 6. History of seizures. PERTINENT LABORATORY DATA: INR on presentation 2.8, on discharge 1.2. Troponin -I peaked at 0.12, returned to 0.01 on day of discharge. MEDICATIONS ON DISCHARGE: 1. Xopenex 45 mcg daily. 2. Lamictal 100 mg 3 times daily. 3. Celebrex 100 mg twice daily. 4. Zolpidem 10 mg at bedtime as needed. 5. Triamcinolone cream topically daily as needed. 6. Simvastatin 5 mg at bedtime. 7. Xarelto 20 mg at bedtime. 8. Propranolol 80 mg 3 times a day. 9. Multivitamin 1 tab in the morning. 10. Meclizine 25 mg 3 times daily. 11. Gabapentin 300 mg daily and 600 mg at bedtime. 12. Nexium mg twice daily. 13. Docusate 100 mg twice daily as needed. 14. Vitamin B12 1000 mcg daily. 15. Cholecalciferol 2000 units daily. 16. ProAir RespiClick 2 puffs inhaled twice daily as needed. 17. Paxil 20 mg daily. Please note the discontinuation of propafenone as well as the transition of fluoxetine to paroxetine. HISTORY OF PRESENT ILLNESS AND HOSPITAL COURSE: This is a 56-year-old female with past medical history as outlined in the history of present illness on the day of admission presented to our hospital after being found down after apparent suicide attempt after medication ingestion. She apparently ingested hydromorphone as well as Xarelto and Ambien. She received Narcan en route to the hospital with improvement in her mental status. In the emergency room, she was noted by this author to have a prolonged QTc of 533, improved to 494 on the day of discharge. Review of her old records do indicate a prolonged QTc. Medications that can contribute to prolonged QTc were discontinued including propafenone as well as fluoxetine. In review of literature, Paxil has likely had the least amount of QTc prolonging effect. However, it should be noted that the patient notes she had not been taking propafenone prior to its discontinuation. Secondary to discontinuation of propafenone, I recommended she follow up with Dr. Redmond upon discharge. The patient was seen in conjunction with Dr. Gary from Psychiatry for evaluation for [facility] hospital stay. She was deemed not to be a mental health unit candidate and safe for discharge from psychiatric perspective. The patient was seen again by this author on the day of discharge, at which point, she was remorseful for her suicide attempt. She was not actively suicidal and notes her family has been very supportive. Her suicide attempts was in setting of her chronic struggle over the left lower extremity multiple fractures as well as receiving news that her long- term partner of 28 years had recently been carrying on another relationship with another woman. The patient identified her behavior as reactionary and did not feel that she would be a risk to herself again in the future. She has a contact in the past with [facility], I recommended to her that she follow up with them again in the future, which she is in full agreement with. Of note, during the hospital stay, the patient did fall when trying to get out of bed using walker, struck her head. No imaging was taken of the head as she has no headaches. No new neurological symptoms. She remained stable for greater than 24 hours after her head strike. The patient will be restarting Xarelto on day after discharge as her INR normalized. She will be 3 days out from her last Xarelto dose. We caution further prescription of opioids in this woman who attempted suicide utilizing them as a means. FOLLOWUP: At followup, please: 1. Evaluate for followup with mental health services. 2. Evaluate for followup with Dr. Redmond. 3. No other specific labs or vitals that need followup. Reason to return to the hospital including, but not limited to, recurrent worsening symptoms including suicide intents or increasingly depressed behavior , chest pain, shortness of breath, bleeding from any source, headache, nausea, vomiting, lightheadedness or loss of consciousness, inability to obtain or tolerate medications were discussed with the patient and she acknowledged understanding. TIME SPENT: Greater than 60 minutes was spent on the discharge of this patient , greater than half was spent [id number] with the patient. [id number]/[facility] #: [id number] MADHAV
--- NOTE | 2016-11-30 22:56 | ED ---
Nisreen Flores Salem, scribed for Carlos Sol MD on 11/27/16 at 1425 . Psychiatric Complaint - HPI Summary HPI Summary: Patient is a 56 y/o F who presents to the ED per EMS s/p OD this morning. Pt reports SI. She states that she took 6 Xarelto, 10 oxycodone, among other medications. Significant other states that he found her breathing and not cyanotic, but on the floor. Pt denies pain, but states that she did hit her head. Her significant other (of 30 years per him) also states that he had been cheating on her and that she recently found out that she may be having her LLE amputated. Pt states that she left him a letter. She received Narcan by EMS en route. PSHx of brain surgery 10-12 years ago. - History Of Current Complaint Chief Complaint: EDMentalHealth Time Seen by Provider: 11/27/16 13:41 Accompanied By: Family. Hx Obtained From: Patient, Family/Supervisor [employer] [place] Onset/Duration: Gradual Onset, Still Present Timing: Constant Severity Initially: Moderate Severity Currently: Moderate Character: Depressed Aggravating Factor(s): Nothing Alleviating Factor(s): Nothing Associated Signs And Symptoms: Positive: Negative Related History: Positive For: Prior Psychiatric Issues Has Suicidal: Reports: Thoughts, Demonstrates Gesture - Allergies/Home Medications Allergies/Adverse Reactions: Allergies Allergy/AdvReac Type Severity Reaction Status Date / Time Adhesive Tape [Plastic Tape] Allergy Intermediate Rash And Verified 06/16/16 08: 58 Itching Morphine Allergy HALLUCINATION, Verified 06/16/16 08:58 VIOLENT Home Medications: Home Medications Xopenex Hfa Inhaler* 45 mcg INH 11/27/16 [History] traZODone TAB* 50 mg PO MDD 2 11/27/16 [History] PMH/Surg Hx/FS Hx/Imm Hx Endocrine/Hematology History: Reports: Hx Systemic Lupus Erythematosus, Hx Anemia - WITH Denies: Hx Anticoagulant Therapy, Hx Blood Disorders, Hx Blood Transfusions, Hx Sickle Cell Disease, Hx Thyroid Disease, Hx Unexplained Bleeding, Other Endocrine/Hematological Disorders Cardiovascular History: Reports: Hx Hypercholesterolemia, Hx Hypertension, Other Cardiovascular Problems/Disorders - AFIB Respiratory History: Reports: Hx Chronic Obstructive Pulmonary Disease (COPD) Denies: Hx Sleep Apnea, Other Respiratory Problems/Disorders GI History: Reports: Hx Gall Bladder Disease - Cholecystectomy, Hx Gastroesophageal Reflux Disease - ESOPHAGEAL RING Denies: Other GI Disorders History: Denies: Other Problems/Disorders Musculoskeletal History: Reports: Hx Arthritis, Hx Tendonitis - TYLER KNEES Denies: Other Musculoskeletal History Sensory History: Reports: Hx Contacts or Glasses Denies: Hx Deafness, Hx Hearing Aid, Other Sensory Impairments Opthamlomology History: Reports: Hx Contacts or Glasses Denies: Other Sensory Impairments Neurological History: Reports: Hx Headaches, Hx Migraine, Hx Seizures - h/o seizure d/o, Other Neuro Impairments/Disorders - Vertigo Denies: Hx Dementia Psychiatric History: Reports: Hx Anxiety, Hx Depression Denies: Hx Attention Deficit Hyperactivity Disorder, Hx Eating Disorder, Hx Panic Disorder, Hx Post Traumatic Stress Disorder, Hx Inpatient Treatment, Hx Community Mental Health Tx, Hx Schizophrenia, Hx Bipolar Disorder, Hx Suicide Attempt, Hx of Violent Episodes Against Others, Hx Substance Abuse - Cancer History Cancer Type, Location and Year: BRAIN TUMOR 1995 Hx Chemotherapy: No Hx Radiation Therapy: No Hx Palliative Cancer Treatment: No - Surgical History Surgery Procedure, Year, and Place: ORIF LEFT TIBIA 02/07 Hx Anesthesia Reactions: No Infectious Disease History: Unable to Obtain/Confirm Infectious Disease History: Denies: Hx Shingles, Hx Tuberculosis, Traveled Outside the [place] in Last 30 Days - Family History Known Family History: Positive: Cardiac Disease, Other - Leukemia, colon CA - Social History Alcohol Use: None Hx Substance Use: No Substance Use Type: Reports: None Hx Tobacco Use: Yes Smoking Status (MU): Former Smoker Type: Cigarettes Amount Used/How Often: PACK A DAY Length of Time of Smoking/Using Tobacco: 47 YEARS Have You Smoked in the Last Year: No Review of Systems Positive: Other - No pain. . Negative: Fever, Chills Negative: Erythema Negative: Sore Throat Negative: Chest Pain Negative: Shortness Of Breath, Cough Negative: Abdominal Pain, Vomiting, Nausea Negative: dysuria, hematuria Negative: Myalgia, Edema Negative: Rash Neurological: Other - No dizziness. Psychological: Other - SI. OD. All Other Systems Reviewed And Are Negative: Yes Physical Exam - Summary Physical Exam Summary: Constitutional: Well-developed, Well-nourished, Alert. (-) Distressed Skin: Warm, Dry. Abrasion to right forearm and right anterior shoulder . HENT: Normocephalic; Atraumatic Eyes: Conjunctiva normal. Pupils: 4mm, reactive. Neck: Musculoskeletal ROM normal neck. (-) JVD, (-) Stridor, (-) Tracheal deviation Cardio: Rhythm regular, rate normal, Heart sounds normal; Intact distal pulses; The pedal pulses are 2+ and symmetric. Radial pulses are 2+ and symmetric. (-) Murmur Pulmonary/Chest wall: Airway congestion. Bilateral basilar crackles and rhonchi. Abd: Soft, (-) Tenderness, (-) Distension, (-) Guarding, (-) Rebound Musculoskeletal: (-) Edema Lymph: (-) Cervical adenopathy Neuro: Alert, Oriented x3 Psych: Mood and affect Normal Triage Information Reviewed: Yes Vital Signs On Initial Exam: Initial Vitals BP 169/118 11/27/16 12:08 Vital Signs Reviewed: Yes - Mimi Coma Scale Coma Scale Total: 14 Diagnostics - Vital Signs Vital Signs Temp Pulse Resp BP Pulse Ox 11/27/16 13:17 98.1 F 105 20 119/70 97 11/27/16 12:34 98.6 F 103 23 173/114 95 11/27/16 12:30 66 26 173/114 99 11/27/16 12:10 108 96 11/27/16 12:08 169/118 - Laboratory Lab Results: Lab Results 11/27/16 11/27/16 Range/Units 13:06 13:06 WBC 9.9 (3.5-10.8) 10^3/ul RBC 4.17 (4.0-5.4) 10^6/ul Hgb 13.2 (12.0-16.0) g/dl Hct 40 (35-47) % MCV 96 (80-97) fL MCH 32 H (27-31) pg MCHC 33 (31-36) g/dl RDW 14 (10.5-15) % Plt Count 300 (150-450) 10^3/ul MPV 8 (7.4-10.4) um3 Neut % (Auto) 87.7 H (38-83) % Lymph % (Auto) 6.8 L (25-47) % Lamoure % (Auto) 5.0 (1-9) % Eos % (Auto) 0 (0-6) % Baso % (Auto) 0.5 (0-2) % Absolute Neuts (auto) 8.7 H (1.5-7.7) 10^3/ul Absolute Lymphs (auto) 0.7 L (1.0-4.8) 10^3/ul Absolute Monos (auto) 0.5 (0-0.8) 10^3/ul Absolute Eos (auto) 0 (0-0.6) 10^3/ul Absolute Basos (auto) 0 (0-0.2) 10^3/ul Absolute Nucleated RBC 0 10^3/ul Nucleated RBC % 0 Sodium 138 (133-145) mmol/L Potassium 3.8 (3.5-5.0) mmol/L Chloride 104 (101-111) mmol/L Carbon Dioxide 22 (22-32) mmol/L Anion Gap 12 H (2-11) mmol/L BUN 22 (6-24) mg/dL Creatinine 1.09 H (0.51-0.95) mg/dL Est GFR ( Amer) 66.5 (>60) Est GFR (Non-Af Amer) 51.7 (>60) BUN/Creatinine Ratio 20.2 H (8-20) Glucose 169 H (70-100) mg/dL Calcium 9.6 (8.6-10.3) mg/dL Total Bilirubin 0.80 (0.2-1.0) mg/dL AST 48 H (13-39) U/L ALT 28 (7-52) U/L Alkaline Phosphatase 109 H (34-104) U/L Total Protein 8.0 (6.4-8.9) g/dL Albumin 4.5 (3.2-5.2) g/dL Globulin 3.5 (2-4) g/dL Albumin/Globulin Ratio 1.3 (1-3) TSH 2.10 (0.34-5.60) mcIU/mL Salicylates < 2.50 (<30) mg/dL Acetaminophen < 15 mcg/mL Serum Alcohol < 10 (<10) mg/dL Result Diagrams: 11/27/16 13:06 11/27/16 13:06 Lab Statement: Any lab studies that have been ordered have been reviewed, and results considered in the medical decision making process. - Radiology CXR Radiology Interpretation Completed By: ED Physician - bilateral basil infiltrate., Radiologist - IMPRESSION: LOW LUNG VOLUMES WITH MINIMAL LINEAR ATELECTASIS OF THE RIGHT LUNG BASE. Right forearm XR Radiology Interpretation Completed By: Radiologist - IMPRESSION: No fracture of the right forearm is noted. Right elbow XR Radiology Interpretation Completed By: ED Physician - No acute disease., Radiologist - IMPRESSION: No fracture of the right elbow is noted. Right shoulder XR Radiology Interpretation Completed By: ED Physician - No acute disease., Radiologist - IMPRESSION: 1. NO EVIDENCE FOR FRACTURE. 2. FINDINGS MOST CONSISTENT WITH INFLAMMATORY ARTHROPATHY IN THE ACROMIOCLAVICULAR JOINT. - CT BRAIN CT Interpretation Completed By: Radiologist - IMPRESSION: NO ACUTE INTRACRANIAL PATHOLOGY. Stable right frontal encephalomalacia CERVICAL SPINE CT Interpretation Completed By: Radiologist - IMPRESSION: MODERATE MID TO LOWER CERVICAL OSTEOARTHRITIS. NO ACUTE FINDINGS. - EKG 1611 EKG Interpretation: NSR @ 93 bpm. TWI V2 V4. Course/Dx - Course Course Of Treatment: 56 y/o F presents per EMS s/p OD this morning. Pt reports SI. She states that she took 6 Xarelto, 10 oxycodone, among other medications. She received Narcan by EMS en route. Pt received fluids and Duoneb in ED course. Brain CT shows, per radiology, IMPRESSION: NO ACUTE INTRACRANIAL PATHOLOGY. Stable right frontal encephalomalacia. Cervical spine CT, per radiology, IMPRESSION: MODERATE MID TO LOWER CERVICAL OSTEOARTHRITIS. NO ACUTE FINDINGS. XRs taken of RUE. EKG shows NSR @ 93 bpm. TWI V2 V4. Pt will be admitted. - Differential Dx/Clinical Impression Provider Diagnosis: Aspiration, Intentional overdose , Hypoxemia, UTI (urinary tract infection) - Physician Notifications Discussed Care Of Patient With: Marco A Argueta Time Discussed With Above Provider: 17:30 Instructed by Provider To: Admit As Inpatient Admit/Transition Orders Completed By ED Provider: Yes - Critical Care Time Critical Care Time: 30-74 min Discharge - Discharge Plan Condition: Stable Disposition: ADMITTED TO [facility] documentation as recorded by the Nisreen weeks Salem accurately reflects the service I personally performed and the decisions made by Sweta beal Jerry, MD.
== END 2016-11-29 11:34 | disposition home or self-care (01) | DRG 917 ==
LOC: ED 11:49 → MEDTELE 18:30 → OBSVTOIN 11-28 15:06
PROVIDERS: ADMIT Internal Medicine; ATTEND Internal Medicine
DX: T40.2X2A Poisoning by other opioids, intentional self-harm, initial encounter (principal); I21.4 Non-ST elevation (NSTEMI) myocardial infarction; M32.9 Systemic lupus erythematosus, unspecified; I48.91 Unspecified atrial fibrillation; Z68.41 Body mass index [BMI] 40.0-44.9, adult; E66.01 Morbid (severe) obesity due to excess calories; I10 Essential (primary) hypertension; G25.81 Restless legs syndrome; T45.512A Poisoning by anticoagulants, intentional self-harm, initial encounter; T42.6X2A Poisoning by other antiepileptic and sedative-hypnotic drugs, intentional self-harm, initial encounter; Y92.9 Unspecified place or not applicable; X58.XXXA Exposure to other specified factors, initial encounter; I45.81 Long QT syndrome; Z79.01 Long term (current) use of anticoagulants; F32.9 Major depressive disorder, single episode, unspecified; R74.8 Abnormal levels of other serum enzymes; G40.909 Epilepsy, unspecified, not intractable, without status epilepticus; J44.9 Chronic obstructive pulmonary disease, unspecified; E78.5 Hyperlipidemia, unspecified; M19.90 Unspecified osteoarthritis, unspecified site; G43.909 Migraine, unspecified, not intractable, without status migrainosus; K21.9 Gastro-esophageal reflux disease without esophagitis; Z79.891 Long term (current) use of opiate analgesic; Z79.899 Other long term (current) drug therapy; Z88.5 Allergy status to narcotic agent; Z91.048 Other nonmedicinal substance allergy status; Z82.49 Family history of ischemic heart disease and other diseases of the circulatory system; Z83.3 Family history of diabetes mellitus; Z80.1 Family history of malignant neoplasm of trachea, bronchus and lung; Z87.891 Personal history of nicotine dependence; W18.30XA Fall on same level, unspecified, initial encounter; Y92.230 Patient room in hospital as the place of occurrence of the external cause; F43.20 Adjustment disorder, unspecified
CPT/HCPCS: 36415; 70450; 71010; 72125; 80048; 80053; 80320; 80329; 81003; 81015; 82550; 84443; 84484; 85025; 85610; 85730; 87077; 87086; 87186; 93005; 94640; A9270-GY; G0378; G0480; J0696; J2405

== ENCOUNTER 2016-12-09 13:27 | Observation (INO) | payer MEDICARE, MEDICAID ==
[2016-12-09] MEDS ORDERED: Diltiazem IV* 5 MG/ML 5 ML VIAL (for loading dose/IV Push) (25 MG) IV SLOW PU ONE (14:36)
[2016-12-09] MEDS ORDERED: NS 0.9% 1000 ML* 1,000 ML IV ONE (14:36)
--- NOTE | 2016-12-09 14:38 | RAD ---
HISTORY: Atrial fibrillation COMPARISONS: November 27, 2016 VIEWS:1: Single frontal portable view of the chest at 2:20 PM FINDINGS: LINES AND TUBES: None. CARDIOMEDIASTINAL SILHOUETTE: The cardiomediastinal silhouette is normal for portable technique. PLEURA: The costophrenic angles are sharp. No pleural abnormalities are noted. LUNG PARENCHYMA: The lungs are clear. ABDOMEN: The upper abdomen is clear. There is no subphrenic gas. BONES AND SOFT TISSUES: No bone or soft tissue abnormalities are noted. IMPRESSION: NO ACTIVE CARDIOPULMONARY DISEASE.
[2016-12-09 14:49] LABS: Hematocrit 39 % (35-47); Hemoglobin 12.6 g/dl (12.0-16.0); Mean Corpuscular HGB Conc 32 g/dl (31-36); Mean Corpuscular Hemoglobin 31 pg (27-31); Mean Corpuscular Volume 96 fL (80-97); Mean Platelet Volume 7 um3 (7.4-10.4); Red Blood Count 4.05 10^6/ul (4.0-5.4); Red Cell Distribution Width 15 % (10.5-15); White Blood Count 6.2 10^3/ul (3.5-10.8)
[2016-12-09 15:04] LABS: Albumin 3.9 g/dL (3.2-5.2); BUN/Creatinine Ratio 19.4 (8-20); Calcium 9.4 mg/dL (8.6-10.3); EGFR African American 107.4 (>60); EGFR Non-African American 83.5 (>60); Potassium 3.8 mmol/L (3.5-5.0); Total Bilirubin 0.8 mg/dL (0.2-1.0); Total Protein 6.9 g/dL (6.4-8.9)
[2016-12-09 15:06] LABS: Troponin I 0.01 ng/mL (<0.04)
[2016-12-09] MEDS ORDERED: Acetaminophen TAB* 325 MG PO PRN (15:30)
[2016-12-09] MEDS ORDERED: Al Hydrox/Mg Hydrox/Simet LIQ* 30 ML UDC PO PRN (15:30)
[2016-12-09 15:41] LABS: TSH (Thyroid Stimulating Horm) 2.08 mcIU/mL (0.34-5.60)
[2016-12-09] MEDS: Propranolol TAB* 80 MG PO SCH ×2 (17:06→20:35)
[2016-12-09] MEDS: Diltiazem TAB* 30 MG PO SCH ×2 (17:06→23:53)
[2016-12-09] MEDS: Docusate CAP* 100 MG PO SCH (20:23)
[2016-12-09] MEDS: celeCOXIB CAP* 100 MG PO SCH (20:23)
[2016-12-09] MEDS: lamoTRIgine TAB(*) 100 MG PO SCH (20:25)
[2016-12-09] MEDS ORDERED: Rivaroxaban TAB(*) 20 MG TAB PO SCH (21:00)
[2016-12-09] MEDS ORDERED: Zolpidem TAB* 10 MG PO PRN (21:00)
[2016-12-09] MEDS ORDERED: Gabapentin CAP(*) 300 MG PO SCH (21:00)
--- NOTE | 2016-12-09 23:11 | HP ---
CC: Dr. Camacho; Dr. Mortensen; Dr. Redmond* HISTORY AND PHYSICAL: DATE OF ADMISSION: 12/09/16 PRIMARY CARE PHYSICIAN: Dr. Camacho. CHIEF COMPLAINT: The patient was sent from Dr. Redmond's office due to abnormal EKG and echocardiogram. The patient herself does not complain of chest pain, shortness of breath or palpitations, and feels at her baseline. HISTORY OF PRESENT ILLNESS: Mita Garcia is a 56-year-old female with history of paroxysmal atrial fibrillation, on anticoagulation with Xarelto and treatment with propranolol, who presented to the hospital after she had a routine echocardiogram for a followup with Dr. Redmond's office and was noted to be in atrial fibrillation with rapid ventricular response. It also showed moderate mitral regurgitation and difficult to obtain EF levels. Dr. Redmond sent patient to the ED for evaluation. The patient herself stated that she had not changed her medications. In the past, she was recommended to continue propafenone on a daily basis, but she stopped it in April of 2016 since it made her feel queasy in the stomach. Just recently from 11/27/16 to 11/29/16, the patient was admitted to our hospital on telemetry monitored bed when she was noted to have QT prolongation after she intentionally overdosed on her Ambien and a couple of other medications. The patient at that point underwent psychiatric evaluation and deemed to be a good candidate for outpatient mental health followup. Her medications were not changed and she was continued on the propranolol that she usually takes at discharge. She was at that point in sinus bradycardia when she was hospitalized. Once again, the patient currently denies shortness of breath, chest pain, or palpitations. She feels her usual self. Her heart rate is in the 130s and is AFib/flutter. She is going to be placed on overnight observation with a diagnosis of atrial fibrillation with rapid ventricular response. PAST MEDICAL HISTORY: 1. Recent attempted overdose due to suicidal ideation with discharge from the medical floor on 11/29/16. 2. History of paroxysmal atrial fibrillation. 3. History of depression. 4. History of left ankle fracture and 2 attempts of ORIF by Dr. Mortensen in the past year. The patient stated that she is nonweightbearing on the left ankle and usually uses a motorized wheelchair and she transfers from the wheelchair to the bedside commode. 5. History of hyperlipidemia. 6. Asthma. 7. COPD, not oxygen dependent. 8. History of obesity. 9. History of moderate mitral regurgitation. PAST SURGICAL HISTORY: 1. History of brain tumor surgery in 1995. Please note that the brain tumor was noted to be benign. 2. History of cholecystectomy. 3. History of hysterectomy. OUTPATIENT MEDICATIONS: Include: 1. Lamictal 100 mg 2 times a day. 2. Celebrex 100 mg b.i.d. 3. Ambien 10 mg at bedtime. 4. Tylenol cream 1 application daily p.r.n. 5. Simvastatin 5 mg daily. 6. Xarelto 20 mg daily. 7. Propranolol 80 mg 3 times a day. 8. Paxil 20 mg daily. 9. Multivitamin 1 tablet daily. 10. Meclizine 25 mg t.i.d. p.r.n. 11. Xopenex inhaler daily. 12. Gabapentin 300 mg at bedtime. 13. Nexium 20 mg b.i.d. 14. Colace 100 mg b.i.d. p.r.n. 15. Vitamin B12 1000 mcg daily. 16. Vitamin D3 2000 units daily. 17. Albuterol inhaler 2 inhalations b.i.d. p.r.n. FAMILY HISTORY: Positive for heart disease in both parents. SOCIAL HISTORY: The patient has a history of 30-pack year smoking and quit several years ago. She also is a recovering alcoholic, quit in 1995. She denies any drug use. She has a male significant other who lives with the patient and she requests for him to be her surrogate. His name is Mauri Tidwell. REVIEW OF SYSTEMS: Please see history of present illness. The patient stated that her left ankle had always been very unsteady and she is unable to bear weight on that. That has been ongoing for almost a year now. She stated that approximately a week ago, when she was coming back from the hospital to home, she fell down and scraped her left knee. She denies suicidal ideations and she feels well. Apparently, her male partner and herself had somewhat of a dispute about her partner having another female friend. Now, they both feel like they are reconciled and she has not had any suicidal thoughts or ideations in the recent past. All the remaining 14 systems were reviewed with the patient and were otherwise negative. PHYSICAL EXAMINATION GENERAL: The patient is a very pleasant 56-year-old female with a BMI of 42. The patient is in no acute distress. Alert, awake, and oriented x3. VITAL SIGNS: Blood pressure of 133/93, heart rate of 87 and irregularly irregular, respiratory rate is 24, oxygen saturation is 96% on room air, temperature 97.5. HEENT: Head atraumatic, normocephalic. Eyes: Pupils are equal and reactive to light and accommodation. Oropharynx clear. Mucosa moist. NECK: Supple, no JVD, no bruits bilaterally. CARDIOVASCULAR: Irregularly irregular rhythm, no murmurs. RESPIRATORY: Clear to auscultation bilaterally ABDOMEN: Soft, nontender. Bowel sounds present in all 4 quadrants. EXTREMITIES: There is left ankle edema with chronic deformation of the ankle postoperatively. The multiple postsurgical scars are well healed. The patient also has small abrasion of 2 x 2 cm on the left knee that is covered with eschar , with no evidence of infection. The mobility of the left ankle is markedly limited and the joint appears unstable. Remaining joint evaluation shows no deformations or effusions in the remaining joints in the bilateral upper extremities and right lower extremity. SKIN: On evaluation of the skin, apart from the eschar on the left knee that appears not infected, no other abnormalities noted. NEURO EVALUATION: Speech clear. Cranial nerves II through XII are grossly intact. Motor strength is 5/5 bilaterally. LABORATORY DATA: Shows a white blood count of 6.2, hemoglobin of 12.6, hematocrit of 39, and platelets of 342. INR of 0.94, PTT of 27.1. Sodium was 137, potassium 3.8, chloride 106, carbon dioxide 26, BUN 14, creatinine 0.72. Liver function tests were unremarkable. Troponin of 0.01. TSH was 2.08. Brain natriuretic peptide was 215. Portable chest x-ray, impression: "No active cardiopulmonary disease". The patient's EKG showed atrial fibrillation with a heart rate of 130 beats per minute with no significant ST changes. ASSESSMENT AND PLAN: A 56-year-old female with history of obesity, history of paroxysmal atrial fibrillation, but had been only treated with propranolol. She did not tolerate propafenone since the end of 2015. Currently, she presents with asymptomatic atrial fibrillation with rapid ventricular response with heart rate in the 130s. The patient was given 1 intravenous dose of 20 mg of IV Cardizem and her heart rate normalized in the 80s. She is going to be placed on overnight observation. I will place her on Cardizem immediate release p.o. every 6 hours. I will continue her propranolol also. She will be continued on Xarelto for anticoagulation. I will obtain a transthoracic echocardiogram as requested by Dr. Redmond to compare it to today's echocardiogram with a current echocardiogram when patient's heart rate is under better control. The patient, most likely will require a Cardiology consult in the morning. In regards to patient's history of suicidal ideation, the patient currently denies suicidal ideations. Her Lamictal is going to be continued as well as paroxetine. For DVT prophylaxis, the patient is going to be placed on Xarelto as previously taken. TIME SPENT: Approximately 65 minutes was spent on admission of this patient. More than half that time was spent [id number] with the patient doing the interview and physical exam. [id number]/[facility] #: [id number] MADHAV
[2016-12-10] MEDS ORDERED: Furosemide IV* 10 MG/ML 2 ML VIAL (20 MG) IV ONE (00:19)
[2016-12-10 06:07] LABS: Hematocrit 38 % (35-47); Hemoglobin 12.1 g/dl (12.0-16.0); Mean Corpuscular HGB Conc 32 g/dl (31-36); Mean Corpuscular Hemoglobin 31 pg (27-31); Mean Corpuscular Volume 97 fL (80-97); Mean Platelet Volume 7 um3 (7.4-10.4); Red Blood Count 3.88 10^6/ul (4.0-5.4); Red Cell Distribution Width 15 % (10.5-15); White Blood Count 9.3 10^3/ul (3.5-10.8)
[2016-12-10] MEDS: Diltiazem TAB* 30 MG PO SCH ×2 (06:18→15:27)
[2016-12-10 06:20] LABS: BUN/Creatinine Ratio 23.6 (8-20); Calcium 9.5 mg/dL (8.6-10.3); EGFR African American 107.4 (>60); EGFR Non-African American 83.5 (>60)
[2016-12-10] MEDS ORDERED: Perflutren Lipid Microsphere* 3 ML VIAL ONE (08:07)
[2016-12-10] MEDS: Docusate CAP* 100 MG PO SCH (08:53)
[2016-12-10] MEDS: lamoTRIgine TAB(*) 100 MG PO SCH ×2 (08:53→16:44)
[2016-12-10] MEDS: celeCOXIB CAP* 100 MG PO SCH (08:53)
[2016-12-10] MEDS: Propranolol TAB* 80 MG PO SCH ×2 (08:54→16:55)
[2016-12-10] MEDS ORDERED: Levalbuterol HFA INHALER* 1 PUFF MDI INH SCH (09:00)
[2016-12-10] MEDS ORDERED: Cyanocobalamin TAB* 500 MCG PO SCH (09:00)
[2016-12-10] MEDS ORDERED: PARoxetine HCL TAB* 20 MG PO SCH (09:00)
--- NOTE | 2016-12-10 13:13 | ECHO ---
Patient: MITA AYALA [facility] Rec#: [id number] : 1960 Date: 12/10/2016 Age: 56y Height: 162.56 cm / 64.0 in Weight: 115.67 kg / 254.9 lbs Sex: F BSA: 2.17 Room#: 451 Admit Date#: 12/09/2016 Type: Inpatient Referring: Alesia Mendoza MD Reading: Rosina Diaz MD Price Checker: Mita Brown,RDCS,RDMS CC: Marcos Camacho MD Transthoracic Echocardiogram Indication: Afib BP: 124/87 HR: 103 Rhythm: A-Fib Findings History: AFIB, COPD, HTN, HLD, SLE, former smoker, former ETOH, morbid obesity Technical Comments: The study quality is fair. Completed 0845 Left Ventricle: The left ventricular chamber size is normal. Mild concentric left ventricular hypertrophy is observed. There is global hypokinesis of the left ventricle with minor regional variation. The estimated ejection fraction is 45-50%. The assessment of diastolic function is non-diagnostic. Left Atrium: The left atrium is moderately dilated. Right Ventricle: The right ventricular cavity size is normal. The right ventricular global systolic function is low normal. Right Atrium: The right atrial cavity size is normal. Aortic Valve: The aortic valve is trileaflet. There is no evidence of aortic valve thickening. Systolic excursion of the aortic valve is normal. There is a trace of aortic regurgitation. There is no evidence of aortic stenosis. Mitral Valve: The mitral valve structure is not well visualized. There is mitral annular calcification. There is severe mitral regurgitation. Large jet extending to the back of the atrium, mild reversal of flow in the pulmonary veins on color Doppler. The mitral regurgitant jet is posteriorly directed. There is no evidence of mitral stenosis. Tricuspid Valve: The tricuspid valve leaflets are normal. There is moderate to severe tricuspid regurgitation. There is evidence of moderate pulmonary hypertension. Pulmonic Valve: The pulmonic valve structure is not well visualized. Pericardium: There is no significant pericardial effusion. Aorta: There is borderline dilatation of the ascending aorta. There is no dilatation of the aortic arch. There is no dilation of the aortic root. Pulmonary Artery: The main pulmonary artery is not well visualized. Venous: The inferior vena cava is dilated. There is no change in the dimension of the inferior vena cava with respiration consistent with markedly increased right atrial pressure. Contrast: Definity was used to optimize study. A total of 4 ml was used Conclusions The left ventricular chamber size is normal. Mild concentric left ventricular hypertrophy is observed. There is global hypokinesis of the left ventricle with minor regional variation. The estimated ejection fraction is 50%. The right ventricular global systolic function is low normal. There is a trace of aortic regurgitation. There is severe mitral regurgitation. The mitral regurgitant jet is posteriorly directed. There is moderate to severe tricuspid regurgitation. There is evidence of moderate pulmonary hypertension: 44 mmHg. There is borderline dilatation of the ascending aorta: 3.5 cm. Comared with prior echo of December 09, 2016 at [facility] [place] pressure has improved from 70 mmHg, afib rate is slower, the degree of MR not significantly changed, the degree of TR previously estimated as moderate. Measurements Name Value Normal Range RVIDd (AP) 2D 2.8 cm (0.9 - 2.6) RVDdMajor (2D) 2.9 cm (2.2 - 4.4) RAd ISD 4CH 4.8 cm (3.4 - 4.9) RA (A4C)W 4.1 cm (2.9 - 4.6) IVSd (2D) 1.1 cm (0.6 - 1) LVPWd (2D) 1.1 cm (0.6 - 1) LVIDd (2D) 3.7 cm (3.6 - 5.4) LVIDs (2D) 3 cm - LV FS (2D) 17 % (25 - 45) Aortic Annulus 1.8 cm (1.4 - 2.6) Ao root diameter (2D) 2.8 cm (2.1 - 3.5) Ascending Ao 3.5 cm (2.1 - 3.4) Aortic arch 3 cm (1.8 - 3.4) LA dimension (AP) 2D 4.1 cm (2.3 - 3.8) LAd ISD 4CH 6.4 cm (2.9 - 5.3) LA ISD 4CH W 5 cm (2.5 - 4.5) Name Value Normal Range LA ESV SP 4CH (A/L) 94.23 ml - LA ESV SP 2CH (A/L) 90.21 ml - LA ESV BP (A/L) 94.11 ml - LA ESV BP (A/L) index 43 ml/m2 - LA ESV SP 4CH (MOD) 88.03 ml - LA ESV SP 2CH (MOD) 84.72 ml - Name Value Normal Range MV E-wave Vmax 1 m/sec - MV deceleration time 154 msec - LV lateral e' Vmax 0.09 m/sec - LV E:e' lateral ratio 11.1 ratio - Name Value Normal Range AV Vmax 0.9 m/sec - AV peak gradient 3.2 mmHg - LVOT Vmax 0.8 m/sec - LVOT peak gradient 2.6 mmHg - Name Value Normal Range MV Vmax 1.5 m/sec - MV VTI 27.2 cm - MV peak gradient 9 mmHg - MV mean gradient 4.1 mmHg - MV PHT 62 msec - MR Vmax 4.4 m/sec - MR VTI 120 cm - MR flow (PISA) 113.13 ml/sec - MR ERO 27 cm2 - MR PISA radius 0.7 cm - MR alias Vmax 39 cm/sec - MVA (PHT) 3.5 cm2 - Name Value Normal Range TR Vmax 2.7 m/sec - TR peak gradient 29 mmHg - RAP 15 mmHg - RVSP 44 mmHg - IVC diameter 2.7 cm - Name Value Normal Range PV Vmax 0.5 m/sec - PV peak gradient 1 mmHg -
[2016-12-10] MEDS ORDERED: fentaNYL* 50 MCG/ML 2 ML VIAL (100 MCG VIAL) ONE (13:17)
[2016-12-10] MEDS ORDERED: Midazolam* 1 MG/ML 5 ML VIAL (5 MG) ONE (13:17)
[2016-12-10] MEDS ORDERED: Flumazenil* 0.1 MG/ML 5 ML MDV ONE (13:18)
[2016-12-10] MEDS ORDERED: Naloxone* 0.4 MG/ML 1 ML VIAL ONE (13:18)
[2016-12-10] MEDS ORDERED: Lidocaine 2% VISCOUS* 15 ML UDC ONE (13:18)
[2016-12-10] MEDS ORDERED: Amiodarone TAB* 200 MG PO ONE (16:23)
[2016-12-10 16:31] VITALS: BP 119/91
--- NOTE | 2016-12-10 17:35 | ED ---
Daphnie Flores Auryana, scribed for Venkatesh Schaefer MD on 12/09/16 at 1405 . HPI Cardiac - HPI Summary HPI Summary: 56 year old female presents to the ED for further evaluation of EKG changes - send by Dr. Redmond. Patient denies any dizziness, SOB, chest pain, palpitations, abdominal pain, vomiting, constipations, diarrhea, syncope, or any other complaints. PMHx is significant for paroxysmal atrial fibrillation, COPD, and HLD. - History of Current Complaint Chief Complaint: EDGeneral Stated Complaint: EKG CHANGES Time Seen by Provider: 12/09/16 13:49 Hx Obtained From: Patient Onset/Duration: Started Hours Ago, Still Present Timing: Constant Pain Intensity: 0 Pain Scale Used: 0-10 Numeric Associated Signs and Symptoms: Positive: Other: - ekg changes. Negative: Chest Pain, Shortness of Breath, Syncope, Fever, Palpitations, Abdominal Pain - Additional Pertinent History Primary Care Physician: KADEN - Allergy/Home Medications Allergies/Adverse Reactions: Allergies Allergy/AdvReac Type Severity Reaction Status Date / Time Adhesive Tape [Plastic Tape] Allergy Intermediate Rash And Verified 06/16/16 08: 58 Itching Morphine Allergy HALLUCINATION, Verified 06/16/16 08:58 VIOLENT PMH/Surg Hx/FS Hx/Imm Hx Endocrine/Hematology History: Reports: Hx Systemic Lupus Erythematosus, Hx Anemia - WITH Denies: Hx Anticoagulant Therapy, Hx Blood Disorders, Hx Blood Transfusions, Hx Sickle Cell Disease, Hx Thyroid Disease, Hx Unexplained Bleeding, Other Endocrine/Hematological Disorders Cardiovascular History: Reports: Hx Hypercholesterolemia, Hx Hypertension, Other Cardiovascular Problems/Disorders - AFIB Respiratory History: Reports: Hx Chronic Obstructive Pulmonary Disease (COPD), Hx Pneumonia Denies: Hx Asthma, Hx Sleep Apnea, Other Respiratory Problems/Disorders GI History: Reports: Hx Gall Bladder Disease - Cholecystectomy, Hx Gastroesophageal Reflux Disease - ESOPHAGEAL RING Denies: Other GI Disorders History: Denies: Other Problems/Disorders Musculoskeletal History: Reports: Hx Arthritis, Hx Orthopedic Injury - Left lower leg, Hx Tendonitis - TYLER KNEES Denies: Other Musculoskeletal History Sensory History: Reports: Hx Contacts or Glasses Denies: Hx Deafness, Hx Hearing Aid, Other Sensory Impairments Opthamlomology History: Reports: Hx Contacts or Glasses Denies: Other Sensory Impairments Neurological History: Reports: Hx Headaches, Hx Migraine, Hx Seizures - h/o seizure d/o, Other Neuro Impairments/Disorders - Vertigo Denies: Hx Dementia Psychiatric History: Reports: Hx Anxiety, Hx Depression Denies: Hx Attention Deficit Hyperactivity Disorder, Hx Eating Disorder, Hx Panic Disorder, Hx Post Traumatic Stress Disorder, Hx Inpatient Treatment, Hx Community Mental Health Tx, Hx Schizophrenia, Hx Bipolar Disorder, Hx Suicide Attempt, Hx of Violent Episodes Against Others, Hx Substance Abuse - Cancer History Cancer Type, Location and Year: BRAIN TUMOR 1995 Hx Chemotherapy: No Hx Radiation Therapy: No Hx Palliative Cancer Treatment: No - Surgical History Surgery Procedure, Year, and Place: ORIF LEFT TIBIA 02/07 Hx Anesthesia Reactions: No Infectious Disease History: Denies: Hx Shingles, Hx Tuberculosis, Traveled Outside the [place] in Last 30 Days - Family History Known Family History: Positive: Cardiac Disease, Other - Leukemia, colon CA - Social History Alcohol Use: None Hx Substance Use: No Substance Use Type: Reports: None Substance Use Comment - Amount & Last Used: intentional polysubstance overdose today Hx Tobacco Use: Yes Smoking Status (MU): Former Smoker Type: Cigarettes Amount Used/How Often: PACK A DAY Length of Time of Smoking/Using Tobacco: 47 YEARS Have You Smoked in the Last Year: No Review of Systems Constitutional: Negative Positive: Other - NO DIZZINESS. Negative: Fever Eyes: Negative ENT: Negative Cardiovascular: Negative Negative: Palpitations, Chest Pain Negative: Shortness Of Breath Gastrointestinal: Negative Positive: Other - no constipation . Negative: Abdominal Pain, Vomiting, Diarrhea Genitourinary: Negative Musculoskeletal: Negative Skin: Negative Neurological: Negative Negative: Syncope Psychological: Normal All Other Systems Reviewed And Are Negative: Yes Physical Exam - Summary Physical Exam Summary: VITAL SIGNS: Reviewed. GENERAL: Patient is a well-developed and obese female who is lying comfortable in the stretcher. Patient is not in any acute respiratory distress. HEAD AND FACE: No signs of trauma. No ecchymosis, hematomas or skull depressions. No sinus tenderness. EYES: PERRLA, EOMI x 2, No injected conjunctiva, no nystagmus. EARS: Hearing grossly intact. Ear canals and tympanic membranes are within normal limits. MOUTH: Oropharynx within normal limits. NECK: Supple, trachea is midline, no adenopathy, no JVD, no carotid bruit, no c- spine tenderness, neck with full ROM. CHEST: Symmetric, no tenderness at palpation LUNGS: Clear to auscultation bilaterally. No wheezing or crackles. CVS: Irregular rate and rhythm, tachycardia, S1 and S2 present, no murmurs or gallops appreciated. ABDOMEN: Soft, non-tender. No signs of distention. No rebound no guarding, and no masses palpated. Bowel sounds are normal. EXTREMITIES: FROM in all major joints, no edema, no cyanosis or clubbing. NEURO: Alert and oriented x 3. No acute neurological deficits. Speech is normal and follows commands. SKIN: Dry and warm. Triage Information Reviewed: Yes Vital Signs On Initial Exam: Initial Vitals Temp Pulse Resp BP Pulse Ox 97.1 F 136 20 135/105 96 12/09/16 13:32 12/09/16 13:32 12/09/16 13:32 12/09/16 13:32 12/09/16 13:32 Vital Signs Reviewed: Yes Diagnostics - Vital Signs Vital Signs Temp Pulse Resp BP Pulse Ox 12/09/16 13:32 97.1 F 136 20 135/105 96 - Laboratory Result Diagrams: 12/09/16 14:33 12/09/16 14:33 Lab Statement: Any lab studies that have been ordered have been reviewed, and results considered in the medical decision making process. - Radiology CXR Xray Interpretation: No Acute Changes Radiology Interpretation Completed By: Radiologist - EKG 13:43 EKG Interpretation: atrial fibrillation @ 130 BPM, no ST elevation Disposition - Course Assessment/Plan: 56 year old female presents to the ED for further evaluation of EKG changes - send by Dr. Redmond. Patient denies any dizziness, SOB, chest pain, palpitations, abdominal pain, vomiting, constipations, diarrhea, syncope, or any other complaints. PMHx is significant for paroxysmal atrial fibrillation, COPD, and HLD. Test results without any significant abnormalities. CXR- NAD. EKG- atrial fibrillation with RVR. Patient was given Cardizem for atrial fibrillation with RVR.I discussed the case with Dr. Redmond who recommends that the patient be admitted to [facility] for further work up. I discussed the case with Dr. Mendoza who accepted the patient for admission to [facility]. - Diagnoses Provider Diagnoses: Atrial fibrillation with RVR - Physician Notifications Discussed Care Of Patient With: Alesia Mendoza Time Discussed With Above Provider: 15:03 - agrees to admit Discharge - Discharge Plan Condition: Stable Disposition: ADMITTED TO [facility] The documentation as recorded by the Daphnie weeks Auryana accurately reflects the service I personally performed and the decisions made by , Venkatesh Schaefer MD.
--- NOTE | 2016-12-10 17:55 | TEE ---
Patient: MITA AYALA [facility] Rec#: [id number] : 1960 Date: 12/10/2016 Age: 56y Height: 163 cm / 64.2 in Weight: 116 kg / 255.7 lbs Sex: F BSA: 2.18 Room#: [facility] Admit Date#: 12/09/2016 Type: Inpatient Referring: Rosina Diaz MD Performing: Rosina Diaz MD Reading: Rosina Diaz MD Underground Supervisor: Mita Brown RD,RDMS Nurse: Frida Mcknight RN Transesophageal Echocardiogram Indication: AFIB BP: 112/78 HR: 107 Rhythm: A-Fib Findings History: AFIB, COPD, HN, HLD, SLE Technical Comments: The study quality is good. Left Ventricle: The left ventricular chamber size is normal. Mild to moderate concentric left ventricular hypertrophy is observed. The estimated ejection fraction is 45-50%. The assessment of diastolic function is non-diagnostic. Left Atrium: The left atrium is mild to moderately dilated. There is no thrombus visualized in the left atrial appendage. Right Ventricle: The right ventricular cavity size is normal. The right ventricular global systolic function is low normal. Right Atrium: The right atrial cavity size is normal. A prominent eustachian valve is noted in the right atrium. A patent foramen ovale is demonstrated by agitated contrast. Aortic Valve: The aortic valve is trileaflet. The aortic valve leaflets are mildly thickened. Systolic excursion of the aortic valve is normal. There is no evidence of aortic regurgitation. There is no evidence of aortic stenosis. Mitral Valve: The mitral valve leaflets are mildly thickened. There is moderate mitral regurgitation. There is no evidence of mitral stenosis. Tricuspid Valve: The tricuspid valve leaflets are normal. There is moderate tricuspid regurgitation. Pulmonic Valve: The pulmonic valve appears normal. There is a trace pulmonic regurgitation. Pericardium: There is no significant pericardial effusion. Aorta: There is mild dilatation of the ascending aorta. There is no dilation of the aortic root. There is plaque visualized in the descending aorta. Pulmonary Artery: The main pulmonary artery appears normal. Venous: The inferior vena cava appears normal in size. The flow pattern of the pulmonary veins appear normal. 3 out of 4 visualized The superior vena cava appears normal. GORDO Procedures: All standard views were attempted within the limitations of patient tolerance and safety. History and physical as well as labs were reviewed. The patient was in a fasting state. Risks and benefits of the procedure, including alternatives, were discussed and written informed consent was obtained. The patient and/or their health care malt liquors sales representative expressed understanding of the procedure, risks and benefits. Baseline and continuous monitoring of blood pressure, heart rate, pulse oximetry and heart rhythm was performed throughout the procedure. The appropriate time-out procedure was performed as per [facility] protocol. The patient was placed in the left lateral decubitus position. The patient's posterior pharynx was anesthetized with 20ml of 2% viscous lidocaine. The patient received IV Midazolam with a total dose of 7 mg The patient received IV Fentanyl with a total dose of 50 mcg The multiplane transesophageal echocardiogram probe was inserted through the posterior oropharynx and advanced into the esophagus without difficulty. Multiple 2D images were obtained of the heart and its related structures. Color flow Doppler was used for evaluation. Spectral Doppler was also used. The atrial septum was interrogated with color flow Doppler. At the conclusion of the procedure the probe was removed with continuous suction without complications. The patient tolerated the procedure with no apparent complications. Contrast: Intravenous agitated saline contrast was used to assess intracardiac shunting. Image #53 Conclusions Mild to moderate concentric left ventricular hypertrophy is observed. The estimated ejection fraction is 45-50%. The right ventricular global systolic function is low normal. There is no thrombus visualized in the left atrial appendage. A patent foramen ovale is demonstrated by agitated contrast. The mitral valve leaflets are mildly thickened. There is moderate mitral regurgitation. There is moderate tricuspid regurgitation. There is mild fusiform dilatation of the ascending aorta: 3.5 cm. There is plaque visualized in the descending aorta. Compared with transthoracic echo done earlier today, the degree of MR and TR improved/estimated lower. Measurements Name Value Normal Range Aortic Annulus 2 cm (1.4 - 2.6) Ao root diameter (2D) 2.8 cm (2.1 - 3.5) Ascending Ao 3.5 cm (2.1 - 3.4) Name Value Normal Range MV E-wave Vmax 1 m/sec - MV deceleration time 181 msec - Name Value Normal Range TR Vmax 2.5 m/sec - TR peak gradient 25 mmHg -
--- NOTE | 2016-12-10 21:05 | CONS ---
CC: Dr. Redmond; Hospitalist Service * CARDIOLOGY CONSULTATION: DATE OF CONSULT: 12/10/16 REASON FOR CONSULT: Atrial fibrillation. HISTORY OF PRESENT ILLNESS: Ms. Garcia is a 56-year-old woman followed by Dr. Redmond with a history of paroxysmal atrial fibrillation. She was sent from his office. On outpatient echo procedure, she was discovered an atrial fibrillation with rapid ventricular rate. At the time of admission, the patient had no symptoms; however, early this morning, the patient was complaining of chest pain requiring sublingual nitroglycerin and not feeling well at all. At the time I saw the patient, she denied shortness of breath or chest pain, in the interim her ventricular rates had become better controlled. The patient has been noncompliant with her anticoagulant, Xarelto, taking it only a few days a week. She perceives that it leads to side effects of tingling and dizziness. When I explained to her that these are unusual side effects and that I felt these symptoms were likely not caused by that, she then explained that she has had falls in the past and easy bruising and this had led to anxiety about this. The patient also stopped using her propafenone and relates symptoms of headaches and just not feeling well on this. It should be noted that the patient was admitted earlier this month with suicidal ideation and overdose of Ambien with long QT interval seen on her EKG. PAST MEDICAL HISTORY: 1. Paroxysmal atrial fibrillation. 2. Dyslipidemia. 3. Mitral and tricuspid insufficiency. 4. Obesity. 5. COPD. 6. Dyslipidemia. 7. Ankle fracture, left, in December 2015 post fall. 9. Depression and recent suicidal ideation as above. PAST SURGICAL HISTORY: Includes: 1. Ankle repair, 2015. 2. Benign brain tumor surgery, 1995. 3. Cholecystectomy. 4. Hysterectomy. CURRENT MEDICATIONS: Include: 1. Tylenol p.r.n. 2. Maalox p.r.n. 3. Celebrex 100 mg b.i.d. 4. B12 1000 mcg a day. 5. Colace 100 mg b.i.d. 6. Neurontin 300 mg q.h.s. 7. Lamictal 100 mg t.i.d. 8. Xopenex inhaler 1 puff daily. 9. Albuterol inhaler 2 puffs b.i.d. p.r.n. wheezing. 10. Paxil 20 mg a day. 11. Inderal 80 mg t.i.d. 12. Xarelto 20 mg a day. 13. Ambien 10 mg q.h.s. p.r.n. insomnia. ALLERGIES: Include ADHESIVE TAPE and MORPHINE (violent hallucinations). FAMILY HISTORY: Positive for early atherosclerotic heart disease in her parents. SOCIAL HISTORY: The patient has a 48-[id number] history, stopped smoking in her 40s. Recovering alcoholic, no alcohol since 1995. No recreational drug use. REVIEW OF SYSTEMS: Negative for recent orthopnea or PND. Negative for recent palpitations. The patient denies current suicidal ideation or depression. She denies coughing, fevers, diarrhea, constipation, hematuria, or dysuria. All other review of systems is negative. PHYSICAL EXAM: The patient is 5 feet 5 inches, weighs 230 pounds with BMI of 38. Blood pressure 120/88, pulse is now 60 and regular, oxygen saturation 95% on 2 L nasal cannula. General Appearance: Morbidly obese, predominantly centripetally obese, middle-aged woman in no acute distress. Psychologically, calm, cooperative, pleasant. Neurologically, awake, alert, oriented to person, place, and time. Cranial nerves II through XII grossly intact. Grossly normal sensory and motor function. Extremities: Examined in bed, good spontaneous movement but gait not checked. Skin: Pale from lack of sun exposure, no cyanosis or rashes. HEENT: Pupils are equal and round. Mucous membranes are moist. Neck: Thick from obesity, but no appreciable increase in JVP. Palpable carotid pulses free of bruits and no thyromegaly appreciated. Breath sounds little bit distant, but clear, no wheezing, rales, or rhonchi. Coronary : S1, S2 regular without murmurs or rubs. Abdomen: Rotund, distended from obesity. Lower Extremities: On the right lower extremity, there is a scar on the medial aspect of the lower leg from surgery and they show [id number] pitting edema, right greater than left. DIAGNOSTIC STUDIES/LAB DATA: White count 9.3, hemoglobin 12.1, hematocrit 38, platelets 341. INR 0.94. Sodium 136, potassium 4.0, glucose 100, BUN 9, creatinine 17. BNP 215. Transthoracic echo done today showed an ejection fraction of 50%, left atrial enlargement, RV function lower limits of normal, aortic valve sclerosis with trace aortic insufficiency, severe mitral insufficiency, [id number] tricuspid insufficiency, and PA pressure estimated at 44 mmHg. Transesophageal echo showed moderate mitral and moderate tricuspid insufficiency , the mitral leaflets appeared somewhat tethered. There was no clot in the left atrial appendage and a patent foramen ovale was demonstrated with saline bubble study. ECG on admission showed atrial fibrillation with a rapid ventricular rate. EKG yesterday at 19:48 showed atrial fibrillation with rate of 101 beats a minute, QRS axis +15, normal intraventricular conduction times, and unremarkable STs. EKG postcardioversion shows normal sinus rhythm at 64 beats a minute, QRS axis 0, normal AV and IV conduction times, corrected QT interval of 478 milliseconds. IMPRESSION AND PLAN: In summary, Mita Garcia is a 56-year-old woman with paroxysmal atrial fibrillation, admitted with atrial fibrillation with rapid ventricular response. Mita is now status post transesophageal echo-guided cardioversion and is back in sinus rhythm. Going forward, I had strong comprehensive discussions with Mita about compliance explaining to her before the procedure that if we cardioverted and she did not continue anticoagulation, her stroke risk was actually higher than staying off it altogether. She states she will be compliant. In terms of antiarrhythmics, with Mita's valvular disease, especially with worsening when in AFib, I think she is going to need an antiarrhythmic. I think the safest one now with the least chance of unacceptable side effects would be amiodarone and I would initiate this at 200 mg a day. In terms of other antiarrhythmics including her nonselective beta kalin, propranolol, this can contribute to depression, but she may be on this for noncardiac reasons such as tremors or headaches. Once we elucidate her indication for propranolol, we can determine if this could be traded for a more selective beta kalin converted to just amiodarone and/or have this tapered off. Long-term, if able we can try to improve diet and lifestyle, perhaps referral to [facility]. The patient's compliance history and psychiatric issues might impact her medical and lifestyle optimization. I recommend close followup with Dr. Redmond. When I originally seen the transthoracic echo, I had concerns that she may need surgery for the mitral insufficiency; however, as the transesophageal echo showed such marked improvement, I do not feel this is the case now, but it does illustrate the importance of maintenance of sinus rhythm for this woman clinically. [id number]/[facility] #: [id number] [facility]
--- NOTE | 2016-12-11 03:29 | CARD ---
CC: Hospitalist service; Dr. Redmond; Dr. Camacho * ELECTRICAL CARDIOVERSION NOTE: DATE OF PROCEDURE: 12/10/16 - ROOM #451 PROCEDURE: Electrical cardioversion, transesophageal echo guided. INDICATIONS: Atrial fibrillation with a rapid ventricular rate. The indications for both procedures were discussed in depth with the patient. Past compliance issues with anti-coagulation, antiarrhythmics were discussed in depth prior to sedation. The patient is amenable to both transesophageal echo and cardioversion. PROCEDURE IN DETAIL: For the transesophageal echo, the patient received a total of 50 mcg of fentanyl and 7 mg of Versed for sedation. She also received viscous lidocaine for the transesophageal echo. The transesophageal echo is documented separately, but no thrombus was seen in the appendage and the decision was made to proceed with cardioversion. Using AP patches, 150 joules of energy was delivered across the chest wall with successful cardioversion. Normal sinus rhythm at 62 beats a minute. The patient was hemodynamically stable throughout the procedure and in Recovery, and currently her blood pressure is 123/70. There were no complications. CONCLUSION: Successful cardioversion to normal sinus rhythm. [id number]/[facility] #: [id number] [facility]
--- NOTE | 2016-12-11 18:47 | DS ---
CC: Dr. Camacho; Dr. Mortensen; Dr. Redmond; Dr. Diaz * DISCHARGE SUMMARY: DATE OF ADMISSION: 12/09/16 DATE OF DISCHARGE: 12/10/16 PRIMARY CARE PROVIDER: Dr. Camacho. ORTHOPEDIST: Dr. Mortensen. DISTRICT LEADER: Dr. Redmond. CONSULTING DISTRICT LEADER: Dr. Diaz. DISCHARGE DIAGNOSIS: Atrial fibrillation with rapid ventricular rate, status post cardioversion. SECONDARY DIAGNOSES: 1. Recent admission to [facility] on 11/27/16 due to attempted overdose with suicidal ideation. 2. Paroxysmal atrial fibrillation. 3. Depression. 4. Left ankle fracture, status post 2 open reduction internal fixation. 5. Hyperlipidemia. 6. Asthma/chronic obstructive pulmonary disease. 7. Obesity with a BMI of 38. 8. Moderate mitral regurgitation. 9. Status post cholecystectomy. 10. Status post hysterectomy. 11. History of brain tumor surgery 20 years ago, reportedly a benign tumor. MEDICATION LIST: 1. Levalbuterol HFA 1 puff inhaled daily. 2. Meclizine 25 mg p.o. t.i.d. 3. Cholecalciferol 2000 units p.o. in the morning. 4. Multivitamins 1 tablet p.o. daily. 5. Albuterol HFA 2 puffs inhaled b.i.d. as needed for shortness of breath. 6. Triamcinolone 0.1% cream topical to affected area daily. 7. Nexium 20 mg p.o. b.i.d. 8. Cyanocobalamin 1000 mcg p.o. daily. 9. Lamotrigine 100 mg p.o. t.i.d. 10. Zolpidem 10 mg p.o. at bedtime as needed for insomnia. 11. Celecoxib 100 mg p.o. b.i.d. 12. Gabapentin 300 mg p.o. at bedtime. 13. Simvastatin 5 mg p.o. at bedtime. 14. Rivaroxaban 20 mg p.o. at bedtime. 15. Colace 100 mg p.o. b.i.d. as needed for constipation. 16. Paroxetine 20 mg p.o. daily. Medication change: Propranolol was decreased to 40 mg p.o. t.i.d. and the plan is to continue to taper it down until it is discontinued. New medication: Amiodarone 200 mg p.o. daily. HOSPITAL COURSE: Ms. Garcia is a 56-year-old lady with a past medical history as stated above that presented to the emergency room after being sent by Dr. Redmond's office due to atrial fibrillation with rapid ventricular rate. For more details about her presentation, I refer you to her history and physical. The patient was initially asymptomatic and goal was for rate control, but later on she developed episodes of chest pressure, so Cardiology consultation was requested. She was seen in consultation by Dr. Diaz and her recommendation was for GORDO cardioversion that was performed with success. In Dr. Diaz's opinion in summary, Ms. Garcia is a 56-year-old lady with paroxysmal atrial fibrillation, admitted with AFib with rapid ventricular response and she is now status post GORDO-guided cardioversion, back in sinus rhythm. We both had conversations with Ms. Garcia about the importance of compliance especially with the antiarrhythmics and her anticoagulation, as if she is not compliant with it, she is increasing her stroke risk significantly. The patient states understanding and states that she will take her medications now. Dr. Diaz felt that especially considering her valvular disease, the patient would need antiarrhythmic. The patient stated that she would not try propafenone again as it caused significant nausea. So, after reviewing multiple options, Dr. Diaz felt that the safest one for her would be amiodarone and her recommendation was for 200 mg a day. The patient was on propranolol for rate control, so that Dr. Diaz's recommendation was to taper down the dose and she is down from 80 to 40 mg 3 times a day and the idea in the future is to taper the propranolol to off and continue amiodarone only. The patient will follow up with Dr. Redmond in the next [address] Diaz read her transthoracic echocardiogram and it showed ejection fraction of 50% and global hypokinesis of the left ventricle with minor regional variation. The transthoracic echo read the mitral regurgitation as severe and [id number] tricuspid regurgitation, but Dr. Diaz states that the transesophageal echo showed marked improvement, so she does not think surgery is indicated at this point, but it does illustrate how important sinus rhythm maintenance is for this patient. The patient received extensive education about her diagnosis and the importance of compliance was once again reinforced prior to her discharge. She is medically stable to be discharge home today to follow up with Dr. Redmond in 1 to 2 weeks. PHYSICAL EXAMINATION: Vital Signs: Temperature 97.6, heart rate is 60, respiratory rate is 20, oxygen saturation is 95% on room air, blood pressure is 119/70. General: The patient is a middle-aged lady, sitting up in bed, in no acute distress. CVS: Normal S1, S2. Regular rate and rhythm. No systolic murmur. Chest: Breath sounds bilaterally with no added sounds. Abdomen is soft. Bowel sounds are present. Neuro: She is alert, awake, and oriented x3. Able to move all 4 extremities. DIET: Heart-healthy diet, avoid caffeine. ACTIVITIES: As tolerated. DISPOSITION: To home. STATUS WHILE IN THE HOSPITAL: Observation. Please keep in mind this is a summarized version of this patient's hospital stay. If you need more information, please do not hesitate to call me at or please obtain the full medical records. TIME SPENT: Approximately 45 minutes was spent to complete this discharge. [id number]/CPS #: [id number]
== END 2016-12-10 18:00 | disposition home or self-care (01) ==
LOC: ED 13:27 → MEDTELE 15:08
PROVIDERS: ADMIT Internal Medicine; ATTEND Internal Medicine
DX: I48.0 Paroxysmal atrial fibrillation (principal); Z79.01 Long term (current) use of anticoagulants; E78.5 Hyperlipidemia, unspecified; J44.9 Chronic obstructive pulmonary disease, unspecified; F32.9 Major depressive disorder, single episode, unspecified; E66.9 Obesity, unspecified; Z68.38 Body mass index [BMI] 38.0-38.9, adult; I34.0 Nonrheumatic mitral (valve) insufficiency; Z79.899 Other long term (current) drug therapy; Z88.5 Allergy status to narcotic agent; Z87.891 Personal history of nicotine dependence; M32.9 Systemic lupus erythematosus, unspecified
CPT/HCPCS: 36415; 71010; 80048; 80053; 83605; 83735; 83880; 84443; 84484; 85025; 85610; 85730; 92960; 93005; 93306; 93312; 93325; 94640; 96361; 96374; 96375; 99284; 99406; A9270-GY; C8929; G0378; J1940; J2250; J2310; J3010